=== PATIENT | female | born 1955 | race Caucasian/White ===

== ENCOUNTER 2017-11-08 10:49 | Inpatient (IN) | payer OTHER ==
[2017-11-08] VITALS (27 sets, daily range): BP systolic 93–145; BP diastolic 63–104; PULSE 94–120; TEMP 36.7–37.7; O2SAT 95–100; Ht 170.2 cm; Wt 54.4 kg
[~2017-11-08] VITALS: Ht 170.2 cm; Wt 54.4 kg
[~2017-11-08 10:49] MED LIST: AMOX500C3 PO; ASPEC325 PO; ATV5 SL; CARB200T PO; CGN1 PO; DOCU-94 PO; FERR1TAB23 PO; FRRG PO; HALO10TA17 PO; HLD5 PO; LAMO200T35 PO; PANT40TA PO; PHEN1TAB85 PO; RXC5 PO
[2017-11-08] MEDS ORDERED: SODIUM CHLORIDE 0.9% 500ML 500 ML IV STA (11:23)
[2017-11-08] MEDS ORDERED: PANTOprazole INJ 80 MG in DEXTROSE 5% 100ML IV STA (11:36)
[2017-11-08] MEDS ORDERED: HLD5 PO (11:40)
[2017-11-08] MEDS ORDERED: BENZ-89 PO (11:40)
[2017-11-08] MEDS ORDERED: LORA-741 PO (11:40)
[2017-11-08] MEDS ORDERED: ACET-1256 PO (11:44)
[2017-11-08] MEDS ORDERED: NAPR1TAB9 PO (11:44)
[2017-11-08 11:57] LABS: HEMATOCRIT 13.2 % (37-47); HEMOGLOBIN 3.9 g/dL (12.0-16.0); MEAN CELL VOLUME 85.7 fL (80-100); MEAN CORPUSCULAR HEMOGLOBIN 25.3 pg (25-34); MEAN CORPUSCULAR HGB CONC 29.5 g/dl (32-36); PLATELET COUNT 491 K/uL (130-400); WHITE BLOOD COUNT 6.31 K/uL (4.8-10.8)
[2017-11-08 12:03] LABS: ALBUMIN 3.1 gm/dl (3.4-5.0); CALCIUM 8.2 mg/dl (8.5-10.1); CREATININE 0.55 mg/dl (0.60-1.20)
[2017-11-08] MEDS ORDERED: ACETAMINOPHEN 325 MG TAB PO PRN ×2 (12:15→12:45)
[2017-11-08] MEDS ORDERED: ONDANSETRON INJ 2 MG/ML 2 ML VIAL IV PRN (12:15)
[2017-11-08 12:16] LABS: BASO % 1.3 %; BASO ABS # 0.08 K/uL (0-0.2); EOS % 0.3 %; EOS ABS # 0.02 K/uL (0-0.5); IG# 0.07 K/uL (0.00-0.02); LYMPH % 10.9 %; LYMPH ABS # 0.69 K/uL (1.2-3.4); MONO % 12.5 %; MONO ABS # 0.79 K/uL (0.11-0.59); NEUT % 73.9 %; NEUT ABS # 4.66 K/uL (1.4-6.5)
[2017-11-08] MEDS ORDERED: ASPEC325 PO (12:29)
[2017-11-08] MEDS ORDERED: MULT-506 PO (12:29)
[2017-11-08] MEDS ORDERED: LORA0.5T12 PO (12:29)
[2017-11-08] MEDS ORDERED: DENO60SO SQ (12:29)
--- NOTE | 2017-11-08 12:36 | Gastrointestinal Consultation ---
Gastrointestinal Consultation Date of Consultation: Nov 08, 2017 Attending Physician: Neda Consulting Physician: Serjio Reason for Consultation: anemia, melena History of Present Illness Patient is a 62 year old female w/ history listed below who presented to the ED for abnormal labs, HGB 4.1. Of note her baseline HGB trends 7-8. Pt was seen and evaluated, chart reviewed. She is in C2 in the ED. No family at bedside. Pt is a poor historian. It is difficult to obtain accurate history. Per admitting team who has been in contact with family, Kimberly has been taking BID aleve and daily ASA w/ daily PPI. She denies abdominal pain. I ask her if she has any pain today and she tells me her ankle is bothering her. She is unable to further articulate this pain. I asked her what color her stools are, she tells me she has black and dark brown stools daily. She is unable to tell me how many times daily. She denies BRBPR. She tells me she has not vomited, unable to recall the last time she vomited. Feels tired, weak. Denies lightheadedness, dizziness, CP, SOB. On arrival, hypotensive and tachycardic. HCT 13.2 w/ normal platelets. MCV 85. Normal BUN/MANAGER PSYCHIATRY. Fluids running and type and screen sent. Was started on IV PPI NSAIDs: ASA daily, aleve BID AC: none EGD 01/23/12: Normal esophagus.Z-line regular, 38 cm from the incisors.Normal cardia, gastric fundus and gastric body.Gastritis. This was biopsied.Non- obstructing gastric ulcer with clean base. This was biopsied. Normal duodenal bulb. Normal 2nd part of the duodenum. Biopsy was performed. Biopsies were taken with a cold forceps for evaluation of celiac disease. Past Medical/Surgical History anemia, hypotension, tachycardia, acute GIB Past Medical History: anemia, seizure disorder, bipolar, anxiety, depression, intellectual disability Past Surgical History: EGD, hip fracture, amputation, tonsillectomy Social History Smoking Status: Never Smoker Drug Use: none Marital Status: Housing Status: lives with family Occupation Status: other Allergies Coded Allergies: No Known Allergies (Verified , 11/08/17) Current Medications Home Meds and Scripts Medications Dose Route/Sig Max Daily Dose Days Date Category Dose Instructions Multivitamin (Multivitamins) Tab 1 Tab PO DAILY 4/19/18 Reported Prolia (Denosumab) Unknown Strength Izzy Unknown Dose SQ UD 11/08/17 Reported Lorazepam 0.5 Mg Tab 2 Tab PO HS 30 11/08/17 Reported Aspirin 325 Mg Ectab 325 Mg PO DAILY 11/08/17 Rx Aleve (Naproxen) 220 Mg Tab 220 Mg PO BID 11/08/17 Reported Tylenol (Acetaminophen) 500 Mg Tab 1 Tab PO BID 11/08/17 Reported Cogentin (Benztropine Mesylate) 1 Mg Tab 1 Mg PO TID 11/08/17 Reported Ativan (Lorazepam) 0.5 Mg Tab 0.5 Mg PO DAILY 11/08/17 Reported Haloperidol 5 Mg Tab 1 Tab PO BID 11/08/17 Reported Iron (Ferrous Sulfate) 325 Mg Tab 2 Tabs PO TID 10/06/14 Reported Protonix (Pantoprazole Sodium) 40 Mg Tab 40 Mg PO DAILY 10/01/14 Reported Lamictal (Lamotrigine) 200 Mg Tab 400 Mg PO HS 09/16/12 Reported Haldol (Haloperidol) 10 Mg Tab 10 Mg PO HS 09/16/12 Reported Tegretol (Carbamazepine) 200 Mg Tab 400 Mg PO TID 06/19/07 Reported Phenobarbital 30 Mg Tab 64.8 Mg PO TID 06/19/07 Reported 2 X 32.4 MG TID Review of Systems Constitutional: + weakness, + fatigue, No fever Respiratory: No cough, No shortness of breath Cardiac: No chest pain, No edema Abdomen: + GI bleeding (brown and dark black stools, denies any emesis), No pain, No nausea, No vomiting, No diarrhea, No constipation Physical Exam Date Time Temp Pulse Resp B/P (MAP) Pulse Ox O2 Delivery O2 Flow Rate FiO2 11/08/17 11:30 107 11/08/17 11:27 98 Room Air 11/08/17 10:57 37.0 80 20 79/48 95 Room Air General Appearance: no apparent distress, + pertinent finding (pt resting in bed) Eyes: PERRL ENT: hearing grossly normal Neck: supple, trachea midline Respiratory/Chest: lungs clear, normal breath sounds, no respiratory distress, no accessory muscle use Abdomen: normal bowel sounds, non tender, soft, no organomegaly, + pertinent finding (pt would not consent to a rectal examination as this was just done) Neurologic/Psych: alert, normal mood/affect, oriented x 3 Skin: + pallor Laboratory Results Last 24 Hours Test 11/08/17 11:10 11/08/17 12:12 White Blood Count 6.31 K/uL Red Blood Count 1.54 M/uL Hemoglobin 3.9 g/dL Hematocrit 13.2 % Mean Corpuscular Volume 85.7 fL Mean Corpuscular Hemoglobin 25.3 pg Mean Corpuscular Hemoglobin Concent 29.5 g/dl Platelet Count 491 K/uL Neutrophils (%) (Auto) 73.9 % Lymphocytes (%) (Auto) 10.9 % Monocytes (%) (Auto) 12.5 % Eosinophils (%) (Auto) 0.3 % Basophils (%) (Auto) 1.3 % Neutrophils # (Auto) 4.66 K/uL Lymphocytes # (Auto) 0.69 K/uL Monocytes # (Auto) 0.79 K/uL Eosinophils # (Auto) 0.02 K/uL Basophils # (Auto) 0.08 K/uL Immature Granulocyte % (Auto) 1.1 % Immature Granulocyte # (Auto) 0.07 K/uL Hypochromasia PRESENT Anisocytosis PRESENT Stomatocytes 1+ Sodium Level 135 mmol/L Potassium Level 4.0 mmol/L Chloride Level 102 mmol/L Carbon Dioxide Level 24 mmol/L Anion Gap 9.0 mmol/L Blood Urea Nitrogen 12 mg/dl Creatinine 0.55 mg/dl Est Creatinine Clear Calc Drug Dose 97.0 ml/min Estimated GFR () 118.2 Estimated GFR (Non- 101.9 BUN/Creatinine Ratio 21.8 Random Glucose 106 mg/dl Calcium Level 8.2 mg/dl Total Bilirubin 0.2 mg/dl Aspartate Amino Transf (AST/SGOT) 13 U/L Alanine Aminotransferase (ALT/SGPT) 22 U/L Alkaline Phosphatase 45 U/L Total Protein 6.0 gm/dl Albumin 3.1 gm/dl Globulin 2.9 gm/dl Albumin/Globulin Ratio 1.1 Thyroid Stimulating Hormone (TSH) 1.370 uIu/ml Impression Patient is a 62 year old female w/ intellectual disability who presented to [facility] ED for abnormal OP labs w/ marked anemia. She has history of anemia, HGB baseline 7-8. On arrival she is hypotensive, tachycardic w/ HCT 13. Normal platelets, BUN/MANAGER PSYCHIATRY. She is on full dose ASA and aleve BID. UGI bleed likely secondary to NSAIDs use. GI would recommend transfusion w/ plan for EGD once adequately transfused. Plan NPO (ok for sip w/ meds) IV PPI bolus and drip Trend H&H Transfuse PRN HGB < 8 Monitor all output No NSAIDs Plan for inpatient EGD tomorrow unless urgently indicated today. Please call with any acute changes, questions or concerns ATTESTATION I have performed a history and physical examination of this patient and reviewed the electronic record. Specifically, on physical examination patient is comfortable without abdominal tenderness. I have discussed the case with Jennie SNYDER. The above note reflects my findings, conclusions, and recommendations. Henry Bassett MD
[2017-11-08] MEDS ORDERED: ICU PROTOCOL FOR HYPERGLYCEMIA PRN (12:45)
--- NOTE | 2017-11-08 13:03 | EMERGENCY ROOM VISIT NOTE ---
History First contact with patient: 11:13 Chief Complaint: ABNORMAL LABS Stated Complaint: LOW BLOOD COUNT History of Present Illness The patient is a 62 year old female who presents to the Emergency Room with complaints of abnormal lab results. Patient has a history of moderate MR. The history is limited. She was reportedly seen in the primary care office today. She was told that she had a very low hemoglobin and that she needed to come to the emergency department. The patient currently denies any pain. She does admit to feeling lightheaded upon standing. She has also had black stools. She denies any vomiting. No fever or chills. She does not know of any history of GI bleeding. Her hemoglobin was reportedly 4.1 in the office. Review of Systems 10 system review performed and negative unless noted in HPI or below. This was done to the best of my ability Past Medical/Surgical History Medical Problems: (1) Chronic anemia (2) Depression with anxiety (3) Hip fracture, right (4) Hx of right BKA (5) Moderate mental retardation (6) Seizure disorder Surgical Problems: (1) H/O tubal ligation (2) Hx of tonsillectomy Moderate MR Seizures Social History Smoking Status: Never Smoker Drug Use: none Marital Status: Housing Status: lives with family Occupation Status: other Current/Historical Medications Scheduled Acetaminophen (Tylenol), 1 TAB PO BID Aspirin (Aspirin), 325 MG PO DAILY Benztropine Mesylate (Cogentin), 1 MG PO TID Carbamazepine (Tegretol), 400 MG PO TID Denosumab (Prolia), Unknown Dose SQ UD Ferrous Sulfate (Iron), 2 TABS PO TID Haloperidol (Haldol), 10 MG PO HS Haloperidol (Haloperidol), 1 TAB PO BID Lamotrigine (Lamictal), 400 MG PO HS Lorazepam (Ativan), 0.5 MG PO DAILY Lorazepam (Lorazepam), 2 TAB PO HS Multivitamin (Multivitamin), 1 TAB PO DAILY Naproxen (Aleve), 220 MG PO BID Pantoprazole (Protonix), 40 MG PO DAILY Phenobarbital (Phenobarbital), 64.8 MG PO TID Physical Exam Vital Signs Date Time Temp Pulse Resp B/P (MAP) Pulse Ox O2 Delivery O2 Flow Rate FiO2 11/08/17 11:49 110 16 100 11/08/17 11:30 107 11/08/17 11:27 98 Room Air 11/08/17 11:15 102/61 11/08/17 10:57 37.0 80 20 79/48 95 Room Air Physical Exam GENERAL: 62-year-old female, pale in appearance, in no acute distress, nondiaphoretic, well-developed well-nourished. SKIN: The skin was pale HEAD: Normocephalic atraumatic. MOUTH: Mucous membranes dry NECK: Supple without nuchal rigidity. No lymphadenopathy. Cervical spine is nontender. No JVD. HEART: Tachycardic, regular rhythm without murmurs gallops or rubs. LUNGS: Clear to auscultation bilaterally without wheezes, rales or rhonchi. No accessory muscle use. ABDOMEN: Positive bowel sounds x 4.Soft, nontender, without organomegaly. No guarding or rebound tenderness. RECTAL: No external hemorrhoids noted. Digital exam reveals good sphincter tone. No masses or fissures. Black stool noted in the rectum. Guaiac positive. MUSCULOSKELETAL: Right BKA noted strength 5/5 throughout. NEURO: Patient was alert and oriented to person and place. She is answering most questions appropriately. Medical Decision & Procedures Laboratory Results 11/08/17 11:10 Red Blood Count 1.54, Mean Corpuscular Volume 85.7, Mean Corpuscular Hemoglobin 25.3, Mean Corpuscular Hemoglobin Concent 29.5, Neutrophils (%) (Auto) 73.9, Lymphocytes (%) (Auto) 10.9, Monocytes (%) (Auto) 12.5, Eosinophils (%) (Auto) 0.3, Basophils (%) (Auto) 1.3, Neutrophils # (Auto) 4.66, Lymphocytes # (Auto) 0.69, Monocytes # (Auto) 0.79, Eosinophils # (Auto) 0.02, Basophils # (Auto) 0.08 11/08/17 11:10 Test 11/08/17 11:10 White Blood Count 6.31 K/uL (4.8-10.8) Red Blood Count 1.54 M/uL (4.2-5.4) Hemoglobin 3.9 g/dL (12.0-16.0) Hematocrit 13.2 % (37-47) Mean Corpuscular Volume 85.7 fL (80-100) Mean Corpuscular Hemoglobin 25.3 pg (25-34) Mean Corpuscular Hemoglobin Concent 29.5 g/dl (32-36) Platelet Count 491 K/uL (130-400) Neutrophils (%) (Auto) 73.9 % Lymphocytes (%) (Auto) 10.9 % Monocytes (%) (Auto) 12.5 % Eosinophils (%) (Auto) 0.3 % Basophils (%) (Auto) 1.3 % Neutrophils # (Auto) 4.66 K/uL (1.4-6.5) Lymphocytes # (Auto) 0.69 K/uL (1.2-3.4) Monocytes # (Auto) 0.79 K/uL (0.11-0.59) Eosinophils # (Auto) 0.02 K/uL (0-0.5) Basophils # (Auto) 0.08 K/uL (0-0.2) Immature Granulocyte % (Auto) 1.1 % Immature Granulocyte # (Auto) 0.07 K/uL (0.00-0.02) Hypochromasia PRESENT Anisocytosis PRESENT Stomatocytes 1+ Prothrombin Time 11.5 SECONDS (9.0-12.0) Prothromb Time International Ratio 1.1 (0.9-1.1) Activated Partial Thromboplast Time 21.9 SECONDS (21.0-31.0) Partial Thromboplastin Ratio 0.8 Anion Gap 9.0 mmol/L (3-11) Est Creatinine Clear Calc Drug Dose 97.0 ml/min Estimated GFR () 118.2 Estimated GFR (Non- 101.9 BUN/Creatinine Ratio 21.8 (10-20) Calcium Level 8.2 mg/dl (8.5-10.1) Total Bilirubin 0.2 mg/dl (0.2-1) Aspartate Amino Transf (AST/SGOT) 13 U/L (15-37) Alanine Aminotransferase (ALT/SGPT) 22 U/L (12-78) Alkaline Phosphatase 45 U/L (45-117) Total Protein 6.0 gm/dl (6.4-8.2) Albumin 3.1 gm/dl (3.4-5.0) Globulin 2.9 gm/dl (2.5-4.0) Albumin/Globulin Ratio 1.1 (0.9-2) Thyroid Stimulating Hormone (TSH) 1.370 uIu/ml (0.300-4.500) Hepatitis C Antibody Screen NEG (NEG) Medications Administered Medications (Trade) Dose Ordered Sig/Christopher Route Start Time Stop Time Status Last Admin Dose Admin Sodium Chloride 500 ml @ 999 mls/hr Q31M STAT IV 11/08/17 11:23 11/08/17 11:53 DC 11/08/17 12:05 999 MLS/HR Pantoprazole Sodium 80 mg/ Dextrose 120 ml @ 480 mls/hr NOW STAT IV 11/08/17 11:36 11/08/17 11:50 DC 11/08/17 12:05 480 MLS/HR Pantoprazole Sodium 40 mg/ Dextrose 100 ml @ 20 mls/hr Q5H IV 11/08/17 11:50 12/08/17 11:49 11/08/17 16:47 20 MLS/HR ED Course Patient was seen and examined Vital signs including blood pressure were reviewed medications list was verified with patient Labs were obtained, and a saline lock was established 2 18-gauge saline locks were established. She was hydrated with 500 cc normal saline. She was ordered pantoprazole IV push and drip Upon reassessment, the patient was resting comfortably. Her vital signs of blood pressure recheck. She was slightly tachycardic. She was ordered another 500 cc normal saline bolus Blood products were ordered The [facility] It was subsequently discussed with GI. The patient was again rechecked and denied any pain or dizziness. The [facility] service will kindly admit the patient to the hospital for further workup and treatment Medical Decision Differential diagnosis: Acute on chronic anemia, upper GI bleed, gastritis, duodenal ulcer, renal failure, coagulopathy, bowel perforation This patient is a 62-year-old female presents to the emergency department from her primary care physician's office for profound anemia. On exam, the patient was significantly pale. She was initially hypotensive. She became more tachycardic. The patient was guaiac positive with black stools. She denies any abdominal pain. Her abdomen was benign on exam. I did not suspect perforation. The patient was hydrated and ordered blood products. She was started on pantoprazole. The admitting service was consulted. She will be admitted for further workup and treatment. This chart was completed in part utilizing Dragon Speech Voice Recognition software. Attempts were made to minimize the grammatical errors, random word insertions, pronoun errors and incomplete sentences. Any formal questions or concerns about the content, text or information contained within the body of this dictation should be directly addressed to the provider for clarification. Medication Reconcilliation Current Medication List: was personally reviewed by me Blood Pressure Screening Patient's blood pressure: Low blood pressure Consults Consulting Physician: Meredith marshall Impression Primary Impression: Severe anemia Additional Impression: GI bleed Critical Care I have personally spent greater than 30 minutes of critical care time in the direct management of this patient. This includes bedside care, interpretation of diagnostic studies, and testing, discussion with consultants, patient, and family members, and other required patient management activities. This 30 minutes is in excess of all separately billable procedures. Departure Information Prescriptions Aspirin (Aspirin) 325 Mg Ectab 325 MG PO DAILY, #60 Prov: Margret Red .LILLIAN 11/08/17 Referrals Anibal Roche M.D. (PCP) Patient Instructions My [facility] Problem Qualifiers
[2017-11-08 13:23] LABS: INR 1.1 (0.9-1.1); PTT PATIENT 21.9 SECONDS (21.0-31.0)
--- NOTE | 2017-11-08 13:45 | History and Physical ---
History & Physical Date & Time of Service: Nov 08, 2017 ~ 1145 Chief Complaint: Referred by PCP for anemia Primary Care Physician: Anibal Roche M.D. History of Present Illness 62-year-old female who presents the ED by referral of her PCP for evaluation of anemia. She has chronic anemia with baseline hemoglobins around 7-8. History is limited from the patient due to her underlying mental status. When asked questions, she mostly repeats them back. She presented to her PCPs office today with complaints of increasing fatigue and weakness. I spoke to her son on the phone who provides the history for me. He reports that she has chronic fatigue and weakness however has been worse over the past couple weeks. Patient is on iron supplement and stools are chronically dark. No changes in stools or bright red bleeding per rectum. No reports of chest pain or shortness of breath. No lightheadedness, dizziness, or syncopal events. No other recent illnesses, fever, or chills. Son reports she has been having some urinary incontinence. Patient went to her PCPs office today she was found to have a hemoglobin of 4.1. She was referred to the ER for further evaluation. In the ED patient's hemoglobin is 3.9. Systolic blood pressures have been running in the 90s to low 100s. Heart rates have been in the 110's. In the ED , patient was given IVF and started on Protonix drip. She was also typed and crossed for blood. 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 Status: Chronic (5) Moderate mental retardation Status: Chronic (6) Seizure disorder Status: Chronic Surgical Problems: (1) H/O tubal ligation Status: Chronic (2) Hx of tonsillectomy Status: Chronic Family History FH: colon cancer MOTHER FH: prostate cancer FATHER Social History Smoking Status: Never Smoker Alcohol Use: none Marital Status: Housing status: lives with family Occupational Status: other Immunizations History of Influenza Vaccine: Yes Influenza Vaccine Date: May 18, 2017 History of Tetanus Vaccine?: Yes Tetanus Immunization Date: May 18, 2017 Allergies Coded Allergies: No Known Allergies (Verified , 11/08/17) Home Medications Scheduled Acetaminophen (Tylenol), 1 TAB PO BID Aspirin (Aspirin), 325 MG PO DAILY Benztropine Mesylate (Cogentin), 1 MG PO TID Carbamazepine (Tegretol), 400 MG PO TID Denosumab (Prolia), Unknown Dose SQ UD Ferrous Sulfate (Iron), 2 TABS PO TID Haloperidol (Haldol), 10 MG PO HS Haloperidol (Haloperidol), 1 TAB PO BID Lamotrigine (Lamictal), 400 MG PO HS Lorazepam (Ativan), 0.5 MG PO DAILY Lorazepam (Lorazepam), 2 TAB PO HS Multivitamin (Multivitamin), 1 TAB PO DAILY Naproxen (Aleve), 220 MG PO BID Pantoprazole (Protonix), 40 MG PO DAILY Phenobarbital (Phenobarbital), 64.8 MG PO TID Review of Systems ROS limited due to patient's mental status. Pertinent positives and negatives as noted in HPI. Physical Exam Vital Signs Date Time Temp Pulse Resp B/P (MAP) Pulse Ox O2 Delivery O2 Flow Rate FiO2 11/08/17 12:42 111/58 11/08/17 12:30 96/55 11/08/17 12:19 109 18 99 11/08/17 11:49 110 16 100 11/08/17 11:30 107 11/08/17 11:27 98 Room Air 11/08/17 11:15 102/61 11/08/17 10:57 37.0 80 20 79/48 95 Room Air General Appearance: WD/WN, no apparent distress Head: normocephalic, atraumatic Eyes: normal inspection, EOMI, sclerae normal ENT: hearing grossly normal, + pertinent finding (Mucous membranes moist) Neck: supple, no JVD, trachea midline Respiratory/Chest: lungs clear, normal breath sounds, no respiratory distress Cardiovascular: no edema, normal peripheral pulses, + tachycardia (Regular rhythm) Abdomen/GI: normal bowel sounds, non tender, soft, no organomegaly Extremities/Musculoskelatal: + pertinent finding (S/P right BKA) Neurologic/Psych: no motor/sensory deficits, alert, + pertinent finding ( History of moderate mental retardation, poor insight, frequently repeats questions back) Skin: warm/dry, + pallor Diagnostics Laboratory Results Results Past 24 Hours Test 11/08/17 11:10 11/08/17 12:12 11/08/17 12:49 Range/Units White Blood Count 6.31 4.8-10.8 K/uL Red Blood Count 1.54 4.2-5.4 M/uL Hemoglobin 3.9 12.0-16.0 g/dL Hematocrit 13.2 37-47 % Mean Corpuscular Volume 85.7 80-100 fL Mean Corpuscular Hemoglobin 25.3 25-34 pg Mean Corpuscular Hemoglobin Concent 29.5 32-36 g/dl Platelet Count 491 130-400 K/uL Neutrophils (%) (Auto) 73.9 % Lymphocytes (%) (Auto) 10.9 % Monocytes (%) (Auto) 12.5 % Eosinophils (%) (Auto) 0.3 % Basophils (%) (Auto) 1.3 % Neutrophils # (Auto) 4.66 1.4-6.5 K/uL Lymphocytes # (Auto) 0.69 1.2-3.4 K/uL Monocytes # (Auto) 0.79 0.11-0.59 K/uL Eosinophils # (Auto) 0.02 0-0.5 K/uL Basophils # (Auto) 0.08 0-0.2 K/uL Immature Granulocyte % (Auto) 1.1 % Immature Granulocyte # (Auto) 0.07 0.00-0.02 K/uL Hypochromasia PRESENT Anisocytosis PRESENT Stomatocytes 1+ Sodium Level 135 136-145 mmol/L Potassium Level 4.0 3.5-5.1 mmol/L Chloride Level 102 98-107 mmol/L Carbon Dioxide Level 24 21-32 mmol/L Anion Gap 9.0 3-11 mmol/L Blood Urea Nitrogen 12 7-18 mg/dl Creatinine 0.55 0.60-1.20 mg/dl Est Creatinine Clear Calc Drug Dose 97.0 ml/min Estimated GFR () 118.2 Estimated GFR (Non- 101.9 BUN/Creatinine Ratio 21.8 10-20 Random Glucose 106 70-99 mg/dl Calcium Level 8.2 8.5-10.1 mg/dl Total Bilirubin 0.2 0.2-1 mg/dl Aspartate Amino Transf (AST/SGOT) 13 15-37 U/L Alanine Aminotransferase (ALT/SGPT) 22 12-78 U/L Alkaline Phosphatase 45 45-117 U/L Total Protein 6.0 6.4-8.2 gm/dl Albumin 3.1 3.4-5.0 gm/dl Globulin 2.9 2.5-4.0 gm/dl Albumin/Globulin Ratio 1.1 0.9-2 Thyroid Stimulating Hormone (TSH) 1.370 0.300-4.500 uIu/ml Impression Assessment and Plan PROFOUND ANEMIA LIKELY UPPER GI BLEEDING -admit to ICU -Patient referred to ED by PCP where she was evaluated for weakness and fatigue and found to have a hemoglobin of 4.1; in the ED, hemoglobin found to be 3.9, systolic blood pressures running in the 90s to low 100s and heart rates in the 110's -Patient had EGD in 2011 that showed gastritis, nonobstructing ulcer with clean base-findings were felt to be due to chronic NSAID use and patient was advised for an 8 week follow-up endoscopy however did not have a completed -Noted that patient takes a full dose aspirin daily and Aleve twice a day -Likely NSAID induced gastritis -History of chronic anemia, baseline hemoglobin runs between 7-8 -Stool is heme positive in ED -Started on Protonix drip in the ED, will continue -IV fluids -N.p.o. except medications -Case discussed with Jennie SNYDER SEIZURE DISORDER, HISTORY OF PSYCHOSIS AND HALLUCINATIONS -Continue benztropine, carbamazepine, haloperidol, lamotrigine, Lorazepam, and phenobarbital DVT PROPHYLAXIS -SCDs due to profound anemia and GI bleeding DISPO -In my clinical judgment this beneficiary meets acute admission criteria, established by [facility], that includes being hospitalized through two midnights. ADDENDUM: I have seen and examined the patient and agree with the assessment and plan above. She has only been given 1L IVF in the ER, but remains hypotensive and will be monitored in the ICU for initial resuscitation. She has taken long-term NSAIDs both ASA 325mg for uncertain reason and Naproxen at least twice daily terminal make up operator for chronic pain in her legs. She is s/p R BKA for chronic osteomyelitis. GI plans for EGD once adequately resuscitated with blood products. Appreciate the ICU team's management of this patient. Josesito, DO Resuscitation Status VTE Prophylaxis Will order VTE Prophylaxis: Yes
[2017-11-08] MEDS: SODIUM CHLORIDE 0.9% 1000ML 1,000 ML IV SCH ×2 (13:51→22:15)
[2017-11-08] MEDS: PANTOprazole INJ 40 MG in DEXTROSE 5% 100ML IV SCH ×3 (13:53→22:32)
[2017-11-08] MEDS: BENZTROPINE MESYLATE 1 MG TAB PO SCH ×2 (13:58→21:18)
[2017-11-08] MEDS: HALOPERIDOL 5 MG TAB PO SCH ×2 (13:59→21:18)
[2017-11-08] MEDS: CARBAMAZEPINE 200 MG TAB PO SCH ×2 (13:59→21:17)
[2017-11-08] MEDS ORDERED: PHENOBARBITAL 32.4 MG TAB PO SCH (14:00)
--- NOTE | 2017-11-08 20:05 | Critical Care Consultation ---
Critical Care Consultation Date of Consultation: Nov 08, 2017. Attending Physician: Jerrod Martin M.D. Reason for Consultation: GI bleeding. History of Present Illness Dear Dr. Martin: Thank you for the kind referral of Mrs. Rutledge to critical care service. 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 The patient presented to her primary care physician due to resistant fatigue and weakness. The patient was found to have significant anemia. However the patient was referred to the ED due to persistent fatigue today and found to have hematocrit in the range of 13. The patient denies hematemesis or coffee-ground, vomiting. She noted that her stool has been dark and melanotic. She denies any abdominal pain. The patient is very poor historian and however she denies shortness of breath, no chest pain , no near syncopal episode and no palpitation. She did not have any history of GI bleed in the past, she does not drink alcohol on a daily basis, she is not known to have history of GI bleed as mentioned above. No family history also of blood dyscrasia and she denies any weight loss. Past Medical/Surgical History As mentioned above in the first section. Family History FH: colon cancer MOTHER FH: prostate cancer FATHER Social History Smoking Status: Never Smoker Alcohol Use: none Marital Status: Housing Status: lives with family Occupation Status: other Allergies Coded Allergies: No Known Allergies (Verified , 11/08/17) Home Medications Scheduled Acetaminophen (Tylenol), 1 TAB PO BID Aspirin (Aspirin), 325 MG PO DAILY Benztropine Mesylate (Cogentin), 1 MG PO TID Carbamazepine (Tegretol), 400 MG PO TID Denosumab (Prolia), Unknown Dose SQ UD Ferrous Sulfate (Iron), 2 TABS PO TID Haloperidol (Haldol), 10 MG PO HS Haloperidol (Haloperidol), 1 TAB PO BID Lamotrigine (Lamictal), 400 MG PO HS Lorazepam (Ativan), 0.5 MG PO DAILY Lorazepam (Lorazepam), 2 TAB PO HS Multivitamin (Multivitamin), 1 TAB PO DAILY Naproxen (Aleve), 220 MG PO BID Pantoprazole (Protonix), 40 MG PO DAILY Phenobarbital (Phenobarbital), 64.8 MG PO TID Current Inpatient Medications Current Inpatient Medications Medications (Trade) Dose Ordered Sig/Christopher Route Start Time Stop Time Status Last Admin Dose Admin Pantoprazole Sodium 40 mg/ Dextrose 100 ml @ 20 mls/hr Q5H IV 11/08/17 11:50 12/08/17 11:49 11/08/17 16:47 20 MLS/HR Sodium Chloride 1,000 ml @ 100 mls/hr Q10H IV 11/08/17 12:15 12/08/17 12:14 11/08/17 13:51 100 MLS/HR Acetaminophen (Tylenol Tab) 650 mg Q4H PRN PO 11/08/17 12:45 12/08/17 12:44 Miscellaneous Information (Icu Protocol For Hyperglycemia) 1 ea PRN PRN N/A 11/08/17 12:45 11/10/17 12:44 Benztropine Mesylate (Cogentin Tab) 1 mg TID PO 11/08/17 14:00 12/08/17 13:59 11/08/17 13:58 1 MG Carbamazepine (Tegretol Tab) 400 mg TID PO 11/08/17 14:00 12/08/17 13:59 11/08/17 13:59 400 MG Haloperidol (Haldol Tab) 5 mg BID@0900,1400 PO 11/08/17 14:00 12/08/17 13:59 11/08/17 13:59 5 MG Miscellaneous Information (Order Awaiting Action) 1 ea QS N/A 11/08/17 16:00 12/08/17 15:59 Lorazepam (Ativan Tab) 1 mg HS PO 11/08/17 21:00 12/08/17 20:59 Lorazepam (Ativan Tab) 0.5 mg DAILY PO 11/09/17 09:00 12/09/17 08:59 Haloperidol (Haldol Tab) 10 mg HS PO 11/08/17 21:00 12/08/17 20:59 Phenobarbital Sodium 50 mg/ Syringe 0.7692 ml @ 0.769 mls/min TID IV 11/08/17 21:00 12/08/17 20:59 Review of Systems Constitutional: No fever, No chills, No sweats, No weight loss, No weakness, No fatigue, No problem reported Eyes: No worsening of vision, No eye pain, No redness, No discharge, No diplopia, No problem reported ENT: No hearing loss, No unusual epistaxis, No nasal symptoms, No sore throat, No tinnitus, No dental problems, No trouble swallowing, No problem reported Respiratory: No cough, No sputum, No wheezing, No shortness of breath, No dyspnea on exertion, No dyspnea at rest, No hemoptysis, No problem reported Cardiovascular: No chest pain, No orthopnea, No PND, No edema, No claudication , No palpitations, No problem reported Abdomen: + problem reported (Melena), No pain, No nausea, No vomiting, No diarrhea, No constipation, No GI bleeding Musculoskeletal: + problem reported (Generalized weakness) Genitourinary - Female: No dysuria, No urinary frequency, No urinary urgency, No urinary incontinence, No urinary retention, No hematuria, No dysmenorrhea, No menorrhagia, No metrorrhagia, No rash, No vaginal bleeding, No vaginal discharge, No vaginal itching, No vulvodynia, No , No problem reported Neurologic: + weakness Psychiatric: + problem reported (Bipolar disorder), No depression symptoms, No anhedonism, No anxiety, No insomnia, No substance abuse Hematologic / Lymphatic: No abnormal bleeding/bruising, No clotting problems, No swollen lymph nodes, No night sweats, No problem reported Allergic / Immunologic: No environmental allergies, No seasonal allergies, No pet sensitivities, No food allergies, No hives, No frequent infections, No poor healing, No prolonged convalescence, No problem reported Physical Exam Date Time Temp Pulse Resp B/P (MAP) Pulse Ox O2 Delivery O2 Flow Rate FiO2 11/08/17 18:50 37.7 106 18 143/87 97 11/08/17 18:20 37.7 102 18 116/91 97 11/08/17 18:05 37.3 101 20 134/87 98 11/08/17 18:00 37.3 97 22 141/88 99 11/08/17 17:00 37.4 107 24 135/75 97 11/08/17 16:35 37.1 109 20 135/104 97 11/08/17 16:20 37.3 110 16 136/89 99 11/08/17 16:00 37.3 111 16 145/77 (99) 99 Room Air 11/08/17 16:00 37.2 114 20 145/77 99 11/08/17 16:00 99 Room Air 11/08/17 15:05 37.2 120 19 117/68 98 11/08/17 14:35 37.1 120 21 128/78 99 11/08/17 14:21 36.7 120 16 134/73 100 11/08/17 14:00 37.0 116 17 117/64 (81) 98 Room Air 11/08/17 13:30 37.0 117 21 135/70 99 Room Air 11/08/17 12:42 111/58 11/08/17 12:30 96/55 11/08/17 12:19 109 18 99 11/08/17 11:49 110 16 100 11/08/17 11:30 107 11/08/17 11:27 98 Room Air 11/08/17 11:15 102/61 11/08/17 10:57 37.0 80 20 79/48 95 Room Air General Appearance: uncomfortable Eyes: EOMI, other (Pale) ENT: normal throat exam Neck: trachea midline Respiratory: breath sounds normal Cardiovasular: normal S1S2, no M/G/R, no murmur Abdomen: non tender, no rebound, no masses Back: normal inspection Upper Extremities: no edema Lower Extremities: no edema, other (BK) Neuro: alert, normal motor exam Psychiatric: normal affect Laboratory Results Last 24 Hours Test 11/08/17 11:10 11/08/17 14:11 11/08/17 17:07 White Blood Count 6.31 K/uL Red Blood Count 1.54 M/uL Hemoglobin 3.9 g/dL Hematocrit 13.2 % Mean Corpuscular Volume 85.7 fL Mean Corpuscular Hemoglobin 25.3 pg Mean Corpuscular Hemoglobin Concent 29.5 g/dl Platelet Count 491 K/uL Neutrophils (%) (Auto) 73.9 % Lymphocytes (%) (Auto) 10.9 % Monocytes (%) (Auto) 12.5 % Eosinophils (%) (Auto) 0.3 % Basophils (%) (Auto) 1.3 % Neutrophils # (Auto) 4.66 K/uL Lymphocytes # (Auto) 0.69 K/uL Monocytes # (Auto) 0.79 K/uL Eosinophils # (Auto) 0.02 K/uL Basophils # (Auto) 0.08 K/uL Immature Granulocyte % (Auto) 1.1 % Immature Granulocyte # (Auto) 0.07 K/uL Hypochromasia PRESENT Anisocytosis PRESENT Stomatocytes 1+ Prothrombin Time 11.5 SECONDS Prothromb Time International Ratio 1.1 Activated Partial Thromboplast Time 21.9 SECONDS Partial Thromboplastin Ratio 0.8 Sodium Level 135 mmol/L Potassium Level 4.0 mmol/L Chloride Level 102 mmol/L Carbon Dioxide Level 24 mmol/L Anion Gap 9.0 mmol/L Blood Urea Nitrogen 12 mg/dl Creatinine 0.55 mg/dl Est Creatinine Clear Calc Drug Dose 97.0 ml/min Estimated GFR () 118.2 Estimated GFR (Non- 101.9 BUN/Creatinine Ratio 21.8 Random Glucose 106 mg/dl Calcium Level 8.2 mg/dl Total Bilirubin 0.2 mg/dl Aspartate Amino Transf (AST/SGOT) 13 U/L Alanine Aminotransferase (ALT/SGPT) 22 U/L Alkaline Phosphatase 45 U/L Total Protein 6.0 gm/dl Albumin 3.1 gm/dl Globulin 2.9 gm/dl Albumin/Globulin Ratio 1.1 Thyroid Stimulating Hormone (TSH) 1.370 uIu/ml Hepatitis C Antibody Screen NEG Urine Color YELLOW Urine Appearance CLEAR Urine pH 5.5 Urine Specific [place] 1.011 Urine Protein NEG Urine Glucose (UA) NEG Urine Ketones NEG Urine Occult Blood NEG Urine Nitrite POS Urine Bilirubin NEG Urine Urobilinogen NEG Urine Leukocyte Esterase NEG Urine WBC (Auto) 1-5 /hpf Urine RBC (Auto) 0-4 /hpf Urine Hyaline Casts (Auto) 1-5 /lpf Urine Epithelial Cells (Auto) 20-30 /lpf Urine Bacteria (Auto) 2+ Bedside Glucose 128 mg/dl Diagnostic Results Hematocrit of 13, no imaging studies, the rest of her labs are consistent with possible upper GI bleed. Assessment & Plan 1. GI bleeding, likely upper. 2. Possibly NSAID induced gastritis versus peptic ulcer disease. 3. History of bipolar, chronic altered mental status, 4. History of rheumatoid arthritis treated with NSAIDs for joint pain. 5. History of osteomyelitis status post BKA. 6. History of seizure disorder. Plan: 1. Continue with Protonix drip. 2. Serial hematocrit check every 8 hours. 3. Transfuse total of 3 units of blood. 4. Keep hematocrit above then 21. 5. Appreciate GI consult. 6. Keep the patient n.p.o. after midnight for tentative endoscopy in the morning. 7. Change phenobarbital to IV as it will not be observed effectively for GI bleeding. 8. Continue the rest of her medications. 9. Discussed with the staff on rounds and details. Critical care time spent with the patient was 45 minutes.
[2017-11-08] MEDS: PHENOBARBITAL SOD IV SCH (21:16)
[2017-11-08] MEDS: LORAZEPAM 0.5 MG TAB PO SCH (21:20)
[2017-11-08 22:03] LABS: HEMATOCRIT 20.3 % (37-47); HEMOGLOBIN 6.8 g/dL (12.0-16.0)
[2017-11-09] VITALS (32 sets, daily range): BP systolic 119–158; BP diastolic 69–101; PULSE 76–104; TEMP 36.2–37.4; O2SAT 93–98
[2017-11-09] MEDS: PANTOprazole INJ 40 MG in DEXTROSE 5% 100ML IV SCH ×2 (04:38→07:52)
[2017-11-09 05:31] LABS: HEMATOCRIT 27.8 % (37-47); HEMOGLOBIN 9.4 g/dL (12.0-16.0); MEAN CORPUSCULAR HEMOGLOBIN 28.7 pg (25-34); MEAN CORPUSCULAR HGB CONC 33.8 g/dl (32-36); MEAN PLATELET VOLUME 8.5 fL (7.4-10.4); NUCLEATED RED BLOOD CELL ABS 0.02 K/uL (0-0); PLATELET COUNT 340 K/uL (130-400); RED CELL DISTRIBUTION WIDTH CV 14.7 % (11.5-14.5); RED CELL DISTRIBUTION WIDTH SD 45.6 fL (36.4-46.3); WHITE BLOOD COUNT 7.41 K/uL (4.8-10.8)
[2017-11-09 06:04] LABS: CALCIUM 7.5 mg/dl (8.5-10.1); CREATININE 0.4 mg/dl (0.60-1.20); POTASSIUM 3.5 mmol/L (3.5-5.1)
[2017-11-09] MEDS: CARBAMAZEPINE 200 MG TAB PO SCH ×3 (07:50→20:39)
[2017-11-09] MEDS: BENZTROPINE MESYLATE 1 MG TAB PO SCH ×3 (07:50→20:35)
[2017-11-09] MEDS: HALOPERIDOL 5 MG TAB PO SCH ×3 (07:50→20:35)
[2017-11-09] MEDS: PHENOBARBITAL SOD IV SCH ×3 (07:52→20:40)
[2017-11-09] MEDS: SODIUM CHLORIDE 0.9% 1000ML 1,000 ML IV SCH ×2 (08:15→11:57)
[2017-11-09] MEDS: LORAZEPAM 0.5 MG TAB PO SCH ×2 (08:23→20:36)
--- NOTE | 2017-11-09 09:48 | Gastroenterology Progress Note ---
Progress Note Date of Service: Nov 09, 2017 Subjective Pt evaluation today including: conversation w/ patient, physical exam, chart review, lab review Pt was seen and evaluated, chart reviewed. No acute events. Presented with ? dark stool on iron, weakness form PCP office. HGB 4. Was transfused, started on PPI drip. no coffee ground emesis, hematemesis, melena BRBPR since admission. Notes she feels okay. No lightheadedness, dizziness, CP, SOB. She is normotensive w/ HCT 27.8 NSAIDs: ASA daily, aleve BID AC: none EGD 01/23/12: Normal esophagus.Z-line regular, 38 cm from the incisors.Normal cardia, gastric fundus and gastric body.Gastritis. This was biopsied.Non- obstructing gastric ulcer with clean base. This was biopsied. Normal duodenal bulb. Normal 2nd part of the duodenum. Biopsy was performed. Biopsies were taken with a cold forceps for evaluation of celiac disease. Review of Systems Constitutional: No fever, No chills, No weakness, No fatigue Respiratory: No cough, No shortness of breath Cardiac: No chest pain, No edema Abdomen: No pain, No nausea, No vomiting, No diarrhea, No constipation, No GI bleeding, No dysphagia, No odynophagia Medications Current Inpatient Medications Medications (Trade) Dose Ordered Sig/Christopher Route Start Time Stop Time Status Last Admin Dose Admin Pantoprazole Sodium 40 mg/ Dextrose 100 ml @ 20 mls/hr Q5H IV 11/08/17 11:50 12/08/17 11:49 11/09/17 07:52 20 MLS/HR Sodium Chloride 1,000 ml @ 100 mls/hr Q10H IV 11/08/17 12:15 12/08/17 12:14 11/08/17 13:51 100 MLS/HR Acetaminophen (Tylenol Tab) 650 mg Q4H PRN PO 11/08/17 12:45 12/08/17 12:44 Miscellaneous Information (Icu Protocol For Hyperglycemia) 1 ea PRN PRN N/A 11/08/17 12:45 11/10/17 12:44 Benztropine Mesylate (Cogentin Tab) 1 mg TID PO 11/08/17 14:00 12/08/17 13:59 11/09/17 07:50 1 MG Carbamazepine (Tegretol Tab) 400 mg TID PO 11/08/17 14:00 12/08/17 13:59 11/09/17 07:50 400 MG Haloperidol (Haldol Tab) 5 mg BID@0900,1400 PO 11/08/17 14:00 12/08/17 13:59 11/09/17 07:50 5 MG Lorazepam (Ativan Tab) 1 mg HS PO 11/08/17 21:00 12/08/17 20:59 11/08/17 21:20 1 MG Lorazepam (Ativan Tab) 0.5 mg DAILY PO 11/09/17 09:00 12/09/17 08:59 11/09/17 08:23 0.5 MG Haloperidol (Haldol Tab) 10 mg HS PO 11/08/17 21:00 12/08/17 20:59 11/08/17 21:18 10 MG Phenobarbital Sodium 50 mg/ Syringe 0.7692 ml @ 0.769 mls/min TID IV 11/08/17 21:00 12/08/17 20:59 11/09/17 07:52 0.769 MLS/MIN Lamotrigine (Lamictal Xr) 400 mg HS PO 11/09/17 21:00 12/09/17 20:59 Cephalexin Monohydrate (Keflex Cap) 500 mg QID PO 11/09/17 09:00 11/12/17 08:59 Objective Vital Signs Date Time Temp Pulse Resp B/P (MAP) Pulse Ox O2 Delivery O2 Flow Rate FiO2 11/09/17 08:00 Room Air 11/09/17 06:01 89 16 139/83 (101) 95 11/09/17 05:46 99 19 143/87 (105) 98 11/09/17 05:31 90 25 134/80 (98) 97 11/09/17 05:15 96 15 148/100 (116) 96 11/09/17 04:15 97 17 144/82 (102) 94 11/09/17 04:01 37.0 98 26 141/101 (114) 96 11/09/17 04:00 Room Air 11/09/17 03:46 96 19 141/95 (110) 93 11/09/17 03:31 37.2 97 18 145/91 (109) 94 11/09/17 03:16 102 17 158/88 (111) 98 11/09/17 03:01 37.4 104 20 151/90 (110) 96 11/09/17 02:46 101 17 148/94 (112) 95 11/09/17 02:31 102 36 149/91 (110) 94 11/09/17 02:25 37.1 100 13 132/97 (109) 97 11/09/17 02:16 37.3 97 19 140/84 (102) 96 11/09/17 02:01 37.3 99 23 135/77 (96) 96 11/09/17 01:46 95 21 135/94 (108) 98 11/09/17 01:31 95 19 144/87 (106) 97 11/09/17 01:16 37.3 101 24 143/94 (110) 96 11/09/17 01:01 99 16 135/86 (102) 97 11/09/17 00:46 37.1 99 18 140/87 (104) 96 11/09/17 00:37 102 29 150/82 (104) 98 11/09/17 00:16 37.4 104 20 145/89 (107) 96 11/09/17 00:01 37.3 100 16 131/97 (108) 98 11/08/17 23:59 Room Air 11/08/17 22:01 101 32 133/90 (104) 95 11/08/17 21:31 98 15 137/81 (99) 98 11/08/17 21:16 96 21 126/64 (84) 98 11/08/17 21:01 94 0 119/69 (86) 98 18 20:45 97 20 128/81 (97) 97 18 20:31 104 42 137/71 (93) 100 11/08/17 20:16 109 14 139/82 (101) 99 Room Air 11/08/17 20:01 37.3 101 14 129/87 (101) 98 Room Air 11/08/17 20:00 Room Air 11/08/17 19:45 106 16 112/72 (85) 99 Room Air 11/08/17 19:30 37.1 105 17 105/70 (82) 98 Room Air 11/08/17 19:16 115 30 93/63 (73) 98 Room Air 4/19/18 19:11 110 19 101/65 (77) 98 Room Air 11/08/17 19:01 109 20 95/63 (74) 97 Room Air 11/08/17 19:00 105 8 97 Room Air 11/08/17 18:50 37.7 106 18 143/87 97 11/08/17 18:20 37.7 102 18 116/91 97 11/08/17 18:05 37.3 101 20 134/87 98 11/08/17 18:00 37.3 97 22 141/88 99 11/08/17 17:00 37.4 107 24 135/75 97 11/08/17 16:35 37.1 109 20 135/104 97 11/08/17 16:20 37.3 110 16 136/89 99 11/08/17 16:00 37.3 111 16 145/77 (99) 99 Room Air 11/08/17 16:00 37.2 114 20 145/77 99 11/08/17 16:00 99 Room Air 11/08/17 15:05 37.2 120 19 117/68 98 11/08/17 14:35 37.1 120 21 128/78 99 11/08/17 14:21 36.7 120 16 134/73 100 11/08/17 14:00 37.0 116 17 117/64 (81) 98 Room Air 11/08/17 13:30 37.0 117 21 135/70 99 Room Air 11/08/17 12:42 111/58 11/08/17 12:30 96/55 11/08/17 12:19 109 18 99 11/08/17 11:49 110 16 100 11/08/17 11:30 107 11/08/17 11:27 98 Room Air 11/08/17 11:15 102/61 11/08/17 10:57 37.0 80 20 79/48 95 Room Air Physical Exam General Appearance: no apparent distress Eyes: PERRL ENT: normal ENT inspection Neck: supple, trachea midline Respiratory/Chest: lungs clear, normal breath sounds, no respiratory distress, no accessory muscle use Cardiovascular: regular rate, rhythm, no murmur Abdomen: normal bowel sounds, non tender, soft, no organomegaly, no pulsatile mass Neurologic/Psych: alert, normal mood/affect, oriented x 3 Skin: normal color, warm/dry Laboratory Results Last 24 Hours Test 11/08/17 11:10 11/08/17 14:11 11/08/17 17:07 11/08/17 21:10 White Blood Count 6.31 K/uL Red Blood Count 1.54 M/uL Hemoglobin 3.9 g/dL 6.8 g/dL Hematocrit 13.2 % 20.3 % Mean Corpuscular Volume 85.7 fL Mean Corpuscular Hemoglobin 25.3 pg Mean Corpuscular Hemoglobin Concent 29.5 g/dl Platelet Count 491 K/uL Neutrophils (%) (Auto) 73.9 % Lymphocytes (%) (Auto) 10.9 % Monocytes (%) (Auto) 12.5 % Eosinophils (%) (Auto) 0.3 % Basophils (%) (Auto) 1.3 % Neutrophils # (Auto) 4.66 K/uL Lymphocytes # (Auto) 0.69 K/uL Monocytes # (Auto) 0.79 K/uL Eosinophils # (Auto) 0.02 K/uL Basophils # (Auto) 0.08 K/uL Immature Granulocyte % (Auto) 1.1 % Immature Granulocyte # (Auto) 0.07 K/uL Hypochromasia PRESENT Anisocytosis PRESENT Stomatocytes 1+ Prothrombin Time 11.5 SECONDS Prothromb Time International Ratio 1.1 Activated Partial Thromboplast Time 21.9 SECONDS Partial Thromboplastin Ratio 0.8 Sodium Level 135 mmol/L Potassium Level 4.0 mmol/L Chloride Level 102 mmol/L Carbon Dioxide Level 24 mmol/L Anion Gap 9.0 mmol/L Blood Urea Nitrogen 12 mg/dl Creatinine 0.55 mg/dl Est Creatinine Clear Calc Drug Dose 97.0 ml/min Estimated GFR () 118.2 Estimated GFR (Non- 101.9 BUN/Creatinine Ratio 21.8 Random Glucose 106 mg/dl Calcium Level 8.2 mg/dl Total Bilirubin 0.2 mg/dl Aspartate Amino Transf (AST/SGOT) 13 U/L Alanine Aminotransferase (ALT/SGPT) 22 U/L Alkaline Phosphatase 45 U/L Total Protein 6.0 gm/dl Albumin 3.1 gm/dl Globulin 2.9 gm/dl Albumin/Globulin Ratio 1.1 Thyroid Stimulating Hormone (TSH) 1.370 uIu/ml Hepatitis C Antibody Screen NEG Urine Color YELLOW Urine Appearance CLEAR Urine pH 5.5 Urine Specific [place] 1.011 Urine Protein NEG Urine Glucose (UA) NEG Urine Ketones NEG Urine Occult Blood NEG Urine Nitrite POS Urine Bilirubin NEG Urine Urobilinogen NEG Urine Leukocyte Esterase NEG Urine WBC (Auto) 1-5 /hpf Urine RBC (Auto) 0-4 /hpf Urine Hyaline Casts (Auto) 1-5 /lpf Urine Epithelial Cells (Auto) 20-30 /lpf Urine Bacteria (Auto) 2+ Bedside Glucose 128 mg/dl Test 11/09/17 03:08 11/09/17 05:14 Bedside Glucose 106 mg/dl White Blood Count 7.41 K/uL Red Blood Count 3.27 M/uL Hemoglobin 9.4 g/dL Hematocrit 27.8 % Mean Corpuscular Volume 85.0 fL Mean Corpuscular Hemoglobin 28.7 pg Mean Corpuscular Hemoglobin Concent 33.8 g/dl RDW Standard Deviation 45.6 fL RDW Coefficient of Variation 14.7 % Platelet Count 340 K/uL Mean Platelet Volume 8.5 fL Nucleated RBC Absolute Count (auto) 0.02 K/uL Nucleated Red Blood Cells % 0.2 % Sodium Level 137 mmol/L Potassium Level 3.5 mmol/L Chloride Level 106 mmol/L Carbon Dioxide Level 26 mmol/L Anion Gap 5.0 mmol/L Blood Urea Nitrogen 8 mg/dl Creatinine 0.40 mg/dl Est Creatinine Clear Calc Drug Dose 132.9 ml/min Estimated GFR () 131.2 Estimated GFR (Non- 113.2 BUN/Creatinine Ratio 20.3 Random Glucose 96 mg/dl Calcium Level 7.5 mg/dl Assessment and Plan Patient is a 62 year old female w/ intellectual disability who presented to [facility] ED for abnormal OP labs w/ marked anemia. She has history of anemia, HGB baseline 7-8. On arrival she is hypotensive, tachycardic w/ HCT 13. 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 She is on full dose ASA and aleve BID. UGI bleed likely secondary to NSAIDs use. She has been adequately transfused w/o evidence of further GI bleed overnight. Will plan for EGD today NPO EGD today IV PPI bolus and drip Trend H&H Transfuse PRN HGB < 7 Monitor all output No NSAIDs Please call with any acute changes, questions or concerns. Attg add: I interviewed and examined pt, reviewed chart and labs. Pt without clear evidence of acute bleed on admission, admit with profound normocytic anemia, h/o NSAID use. No complaints or events o/n, s/p approp rise in hgb with x fusion. Plan EGD today.
[2017-11-09] MEDS ORDERED: LIDOCAINE HCL 2% 2 ML VIAL (20MG/ML) ONE (11:22)
[2017-11-09] MEDS ORDERED: PROPOFOL IV EMULSION 10 MG/ML 20 ML VIAL IV ONE (11:22)
[2017-11-09] MEDS: CEPHALEXIN MONOHYDRATE 500 MG CAP PO SCH ×4 (11:56→20:34)
--- NOTE | 2017-11-09 11:56 | GI REPORT ---
Procedure Date: 11/09/2017 11:02 AM Procedure: Upper GI endoscopy Indications: Acute post hemorrhagic anemia Medicines: See the Anesthesia note for documentation of the administered medications Complications: No immediate complications. Estimated Blood Loss: Estimated blood loss: none. Procedure: Pre-Anesthesia Assessment: - ASA Grade Assessment: III - A patient with severe systemic disease. After obtaining informed consent, the endoscope was passed under direct vision. Throughout the procedure, the patient's blood pressure, pulse, and oxygen saturations were monitored continuously. The Scope was introduced through the mouth, and advanced to the fourth part of duodenum. The upper GI endoscopy was accomplished without difficulty. The patient tolerated the procedure well. Findings: The distal esophagus was mildly tortuous, otherwise the esophagus was normal. There was a large clean based ulcer in the pre-pyloric antrum with smooth edges, and surrounding rim of edema but no mass effect. There was a ring in the antrum. This appears to be in the same location as in 2012. The pylorus was markedly patulous; there is little risk of pyloric stenosis with the ulcer. The remainder of the stomach was normal. The duodenum was deeply intubated and was normal. Biopsies taken from the ulcer edge. Biopsies not taken for Hp, given negative biopsies in 2012. Impression: -Clean based antral ulcer in pre-pyloric stomach. Recommendation: - Discharge patient to floor. Can d/c IV PPI gtt, and subtitute oral BID PPI. Adv diet. NSAID avoidance. Would recommend checking Hp serology and treating if positive. She is at low risk for repeat bleed. She can be discharged home tomorrow morning. She should have f/u EGD in 8 weeks, which we will arrange. Lokesh Trivedi M.D. Lokesh Trivedi MD 11/09/2017 11:56:28 AM This report has been signed electronically. Note Initiated On: 11/09/2017 11:02 AM I attest to the content of the Intraoperative Record and orders documented therein, exceptions below
--- NOTE | 2017-11-09 12:11 | Anesthesiology Progress Note ---
Anesthesia Post Op Note Date & Time Nov 09, 2017 at 12:11 Vital Signs Pain Intensity: 0.0 Vital Signs Past 12 Hours Date Time Temp Pulse Resp B/P (MAP) Pulse Ox O2 Delivery O2 Flow Rate FiO2 11/09/17 12:06 Room Air 11/09/17 12:00 36.7 85 18 136/79 (98) 96 Room Air 11/09/17 10:27 37.5 87 20 119/81 (94) 96 Room Air 11/09/17 10:00 90 19 131/72 (91) Room Air 11/09/17 08:00 Room Air 11/09/17 08:00 37.2 92 22 142/97 (112) 97 Room Air 11/09/17 06:01 89 16 139/83 (101) 95 11/09/17 05:46 99 19 143/87 (105) 98 11/09/17 05:31 90 25 134/80 (98) 97 11/09/17 05:15 96 15 148/100 (116) 96 11/09/17 04:15 97 17 144/82 (102) 94 11/09/17 04:01 37.0 98 26 141/101 (114) 96 11/09/17 04:00 Room Air 11/09/17 03:46 96 19 141/95 (110) 93 11/09/17 03:31 37.2 97 18 145/91 (109) 94 11/09/17 03:16 102 17 158/88 (111) 98 11/09/17 03:01 37.4 104 20 151/90 (110) 96 11/09/17 02:46 101 17 148/94 (112) 95 11/09/17 02:31 102 36 149/91 (110) 94 11/09/17 02:25 37.1 100 13 132/97 (109) 97 11/09/17 02:16 37.3 97 19 140/84 (102) 96 11/09/17 02:01 37.3 99 23 135/77 (96) 96 11/09/17 01:46 95 21 135/94 (108) 98 11/09/17 01:31 95 19 144/87 (106) 97 11/09/17 01:16 37.3 101 24 143/94 (110) 96 11/09/17 01:01 99 16 135/86 (102) 97 11/09/17 00:46 37.1 99 18 140/87 (104) 96 11/09/17 00:37 102 29 150/82 (104) 98 11/09/17 00:16 37.4 104 20 145/89 (107) 96 Notes Mental Status: alert / awake / arousable, participated in evaluation Pt Amnestic to Procedure: Yes Nausea / Vomiting: adequately controlled Pain: adequately controlled Airway Patency, RR, SpO2: stable & adequate BP & HR: stable & adequate Hydration State: stable & adequate Anesthetic Complications: no major complications apparent
--- NOTE | 2017-11-09 12:51 | Critical Care Progress Note ---
Critical Care Progress Note Date of Service Nov 09, 2017. Attending Dr. Hylton Subjective The patient is stable hemodynamically, she did not have any problem overnight, no nausea or vomiting and no recurrence of melena. No abdominal pain either. The patient remains n.p.o. for EGD today. Objective Physical exam on 11/09/2017 revealed vital signs are stable, S1-S2 regular rate and rhythm, lungs are clear, abdomen is soft and benign, BKA right-sided. Her hematocrit has been stable after blood transfusion. No trending down. Assessment & Plan #1 GI bleeding, appreciate GI input in that regard, the patient underwent EGD which showed clean antral ulcer nonbleeding, unchanged from previous EGD. 2. History of rheumatoid arthritis treated with NSAID as an outpatient. 3. History of bipolar disorder. 4. History of intellectual disability. 5. Seizure disorder. Well-controlled no recurrence. 6. History of osteomyelitis status post BKA on the right. Plan: 1. I will stop Protonix drip. 2. Start Protonix p.o. twice daily. 3. Start oral intake. 4. The patient will need EGD in 8 weeks per GI. 5. Stop IV fluids. 6. Avoid NSAID. 7. She will need to see a board certified music therapist as an outpatient for treatment of rheumatoid arthritis. 8. Continue her antiepileptic medications. 9. Venodyne boots. 10. Physical therapy. 11. Disposition plan per . Thank you for the kind referral, case discussed with the staff on rounds and details, critical care time spent with the patient was 35 minutes. Appreciate all notes. Data Medications: Current Inpatient Medications Medications (Trade) Dose Ordered Sig/Christopher Route Start Time Stop Time Status Last Admin Dose Admin Acetaminophen (Tylenol Tab) 650 mg Q4H PRN PO 11/08/17 12:45 12/08/17 12:44 Miscellaneous Information ([facility] Protocol For Hyperglycemia) 1 ea PRN PRN N/A 11/08/17 12:45 11/10/17 12:44 Benztropine Mesylate (Cogentin Tab) 1 mg TID PO 11/08/17 14:00 12/08/17 13:59 11/09/17 07:50 1 MG Carbamazepine (Tegretol Tab) 400 mg TID PO 11/08/17 14:00 12/08/17 13:59 11/09/17 07:50 400 MG Haloperidol (Haldol Tab) 5 mg BID@0900,1400 PO 11/08/17 14:00 12/08/17 13:59 11/09/17 07:50 5 MG Lorazepam (Ativan Tab) 1 mg HS PO 11/08/17 21:00 12/08/17 20:59 11/08/17 21:20 1 MG Lorazepam (Ativan Tab) 0.5 mg DAILY PO 11/09/17 09:00 12/09/17 08:59 11/09/17 08:23 0.5 MG Haloperidol (Haldol Tab) 10 mg HS PO 11/08/17 21:00 12/08/17 20:59 11/08/17 21:18 10 MG Phenobarbital Sodium 50 mg/ Syringe 0.7692 ml @ 0.769 mls/min TID IV 11/08/17 21:00 12/08/17 20:59 11/09/17 07:52 0.769 MLS/MIN Lamotrigine (Lamictal Xr) 400 mg HS PO 11/09/17 21:00 12/09/17 20:59 Cephalexin Monohydrate (Keflex Cap) 500 mg QID PO 11/09/17 09:00 11/12/17 08:59 11/09/17 11:56 500 MG Pantoprazole Sodium (Protonix Tab) 40 mg BID PO 11/09/17 21:00 12/09/17 20:59 UNV Vital Signs: Date Time Temp Pulse Resp B/P (MAP) Pulse Ox O2 Delivery O2 Flow Rate FiO2 11/09/17 12:06 Room Air 11/09/17 12:00 36.7 85 18 136/79 (98) 96 Room Air 11/09/17 10:27 37.5 87 20 119/81 (94) 96 Room Air 11/09/17 10:00 90 19 131/72 (91) Room Air 11/09/17 08:00 Room Air 11/09/17 08:00 37.2 92 22 142/97 (112) 97 Room Air 11/09/17 06:01 89 16 139/83 (101) 95 11/09/17 05:46 99 19 143/87 (105) 98 11/09/17 05:31 90 25 134/80 (98) 97 11/09/17 05:15 96 15 148/100 (116) 96 11/09/17 04:15 97 17 144/82 (102) 94 11/09/17 04:01 37.0 98 26 141/101 (114) 96 11/09/17 04:00 Room Air 11/09/17 03:46 96 19 141/95 (110) 93 11/09/17 03:31 37.2 97 18 145/91 (109) 94 11/09/17 03:16 102 17 158/88 (111) 98 11/09/17 03:01 37.4 104 20 151/90 (110) 96 11/09/17 02:46 101 17 148/94 (112) 95 11/09/17 02:31 102 36 149/91 (110) 94 11/09/17 02:25 37.1 100 13 132/97 (109) 97 11/09/17 02:16 37.3 97 19 140/84 (102) 96 11/09/17 02:01 37.3 99 23 135/77 (96) 96 11/09/17 01:46 95 21 135/94 (108) 98 11/09/17 01:31 95 19 144/87 (106) 97 11/09/17 01:16 37.3 101 24 143/94 (110) 96 11/09/17 01:01 99 16 135/86 (102) 97 11/09/17 00:46 37.1 99 18 140/87 (104) 96 11/09/17 00:37 102 29 150/82 (104) 98 11/09/17 00:16 37.4 104 20 145/89 (107) 96 11/09/17 00:01 37.3 100 16 131/97 (108) 98 11/08/17 23:59 Room Air 11/08/17 22:01 101 32 133/90 (104) 95 11/08/17 21:31 98 15 137/81 (99) 98 11/08/17 21:16 96 21 126/64 (84) 98 11/08/17 21:01 94 0 119/69 (86) 98 11/08/17 20:45 97 20 128/81 (97) 97 11/08/17 20:31 104 42 137/71 (93) 100 11/08/17 20:16 109 14 139/82 (101) 99 Room Air 11/08/17 20:01 37.3 101 14 129/87 (101) 98 Room Air 11/08/17 20:00 Room Air 11/08/17 19:45 106 16 112/72 (85) 99 Room Air 11/08/17 19:30 37.1 105 17 105/70 (82) 98 Room Air 11/08/17 19:16 115 30 93/63 (73) 98 Room Air 11/08/17 19:11 110 19 101/65 (77) 98 Room Air 11/08/17 19:01 109 20 95/63 (74) 97 Room Air 11/08/17 19:00 105 8 97 Room Air 11/08/17 18:50 37.7 106 18 143/87 97 11/08/17 18:20 37.7 102 18 116/91 97 11/08/17 18:05 37.3 101 20 134/87 98 11/08/17 18:00 37.3 97 22 141/88 99 11/08/17 17:00 37.4 107 24 135/75 97 11/08/17 16:35 37.1 109 20 135/104 97 11/08/17 16:20 37.3 110 16 136/89 99 11/08/17 16:00 37.3 111 16 145/77 (99) 99 Room Air 11/08/17 16:00 37.2 114 20 145/77 99 11/08/17 16:00 99 Room Air 11/08/17 15:05 37.2 120 19 117/68 98 11/08/17 14:35 37.1 120 21 128/78 99 11/08/17 14:21 36.7 120 16 134/73 100 11/08/17 14:00 37.0 116 17 117/64 (81) 98 Room Air 11/08/17 13:30 37.0 117 21 135/70 99 Room Air Laboratory Results: Last 24 Hours Test 11/08/17 14:11 11/08/17 17:07 11/08/17 21:10 11/09/17 03:08 Urine Color YELLOW Urine Appearance CLEAR Urine pH 5.5 Urine Specific Bradley 1.011 Urine Protein NEG Urine Glucose (UA) NEG Urine Ketones NEG Urine Occult Blood NEG Urine Nitrite POS Urine Bilirubin NEG Urine Urobilinogen NEG Urine Leukocyte Esterase NEG Urine WBC (Auto) 1-5 /hpf Urine RBC (Auto) 0-4 /hpf Urine Hyaline Casts (Auto) 1-5 /lpf Urine Epithelial Cells (Auto) 20-30 /lpf Urine Bacteria (Auto) 2+ Bedside Glucose 128 mg/dl 106 mg/dl Hemoglobin 6.8 g/dL Hematocrit 20.3 % Test 11/09/17 05:14 White Blood Count 7.41 K/uL Red Blood Count 3.27 M/uL Hemoglobin 9.4 g/dL Hematocrit 27.8 % Mean Corpuscular Volume 85.0 fL Mean Corpuscular Hemoglobin 28.7 pg Mean Corpuscular Hemoglobin Concent 33.8 g/dl RDW Standard Deviation 45.6 fL RDW Coefficient of Variation 14.7 % Platelet Count 340 K/uL Mean Platelet Volume 8.5 fL Nucleated RBC Absolute Count (auto) 0.02 K/uL Nucleated Red Blood Cells % 0.2 % Sodium Level 137 mmol/L Potassium Level 3.5 mmol/L Chloride Level 106 mmol/L Carbon Dioxide Level 26 mmol/L Anion Gap 5.0 mmol/L Blood Urea Nitrogen 8 mg/dl Creatinine 0.40 mg/dl Est Creatinine Clear Calc Drug Dose 132.9 ml/min Estimated GFR () 131.2 Estimated GFR (Non- 113.2 BUN/Creatinine Ratio 20.3 Random Glucose 96 mg/dl Calcium Level 7.5 mg/dl
[2017-11-09 14:12] LABS: HEMATOCRIT 27.8 % (37-47); HEMOGLOBIN 9.3 g/dL (12.0-16.0)
--- NOTE | 2017-11-09 15:16 | Progress Note ---
Internal Med Progress Note Date of Service: Nov 09, 2017. Provider Documentation: SUBJECTIVE: The patient was seen and examined in ICU She has history of rheumatoid arthritis and has been taking [id number] NSAID use for pain control Was seen in the PCP clinic with a hemoglobin of 4 She complained to have fatigue and shortness of breath on exertion Status post EGD today and denies any complaints OBJECTIVE: Vital Signs-as noted below Exam: General-no apparent distress Eyes-normal ENT-normal Neck-supple Lungs-clear to auscultation bilaterally Heart-S1-S2 regular no murmur appreciated, Abdomen-benign, soft, mildly tender epigastrium, bowel sounds present Extremities-negative Neuro-AAO 3 Generally weak, no focal neuro deficit Lab data as noted below. ASSESSMENT & PLAN: NSAID Induced Gastric ulcer/Gastritis-no active bleeding PROFOUND ANEMIA LIKELY UPPER GI BLEEDING -Patient referred to ED by PCP where she was evaluated for weakness and fatigue and found to have a hemoglobin of 4.1; in the ED, hemoglobin found to be 3.9, systolic blood pressures running in the 90s to low 100s and heart rates in the 110's -Patient had EGD in 2011 that showed gastritis, nonobstructing ulcer with clean base-findings were felt to be due to chronic NSAID use and patient was advised for an 8 week follow-up endoscopy however did not have a completed -Noted that patient takes a full dose aspirin daily and Aleve twice a day -History of chronic anemia, baseline hemoglobin runs between 7-8 -Stool is heme positive in ED -Started on Protonix drip in the ED, will continue -Appreciate GI input -EGD-Gastritis with Gastric ulcer-no active bleeding SEIZURE DISORDER, HISTORY OF PSYCHOSIS AND HALLUCINATIONS -Continue benztropine, carbamazepine, haloperidol, lamotrigine, Lorazepam, and phenobarbital No acute episode DVT PROPHYLAXIS -SCDs due to profound anemia and GI bleeding Vital Signs: Date Time Temp Pulse Resp B/P (MAP) Pulse Ox O2 Delivery O2 Flow Rate FiO2 11/09/17 14:00 95 15 131/76 (94) 97 Room Air 11/09/17 12:06 Room Air 11/09/17 12:00 36.7 85 18 136/79 (98) 96 Room Air 11/09/17 10:27 37.5 87 20 119/81 (94) 96 Room Air 11/09/17 10:00 90 19 131/72 (91) Room Air 11/09/17 08:00 Room Air 11/09/17 08:00 37.2 92 22 142/97 (112) 97 Room Air 11/09/17 06:01 89 16 139/83 (101) 95 11/09/17 05:46 99 19 143/87 (105) 98 11/09/17 05:31 90 25 134/80 (98) 97 11/09/17 05:15 96 15 148/100 (116) 96 11/09/17 04:15 97 17 144/82 (102) 94 11/09/17 04:01 37.0 98 26 141/101 (114) 96 11/09/17 04:00 Room Air 11/09/17 03:46 96 19 141/95 (110) 93 11/09/17 03:31 37.2 97 18 145/91 (109) 94 11/09/17 03:16 102 17 158/88 (111) 98 11/09/17 03:01 37.4 104 20 151/90 (110) 96 11/09/17 02:46 101 17 148/94 (112) 95 11/09/17 02:31 102 36 149/91 (110) 94 11/09/17 02:25 37.1 100 13 132/97 (109) 97 11/09/17 02:16 37.3 97 19 140/84 (102) 96 11/09/17 02:01 37.3 99 23 135/77 (96) 96 11/09/17 01:46 95 21 135/94 (108) 98 11/09/17 01:31 95 19 144/87 (106) 97 11/09/17 01:16 37.3 101 24 143/94 (110) 96 11/09/17 01:01 99 16 135/86 (102) 97 11/09/17 00:46 37.1 99 18 140/87 (104) 96 11/09/17 00:37 102 29 150/82 (104) 98 11/09/17 00:16 37.4 104 20 145/89 (107) 96 11/09/17 00:01 37.3 100 16 131/97 (108) 98 11/08/17 23:59 Room Air 11/08/17 22:01 101 32 133/90 (104) 95 11/08/17 21:31 98 15 137/81 (99) 98 11/08/17 21:16 96 21 126/64 (84) 98 11/08/17 21:01 94 0 119/69 (86) 98 11/08/17 20:45 97 20 128/81 (97) 97 11/08/17 20:31 104 42 137/71 (93) 100 11/08/17 20:16 109 14 139/82 (101) 99 Room Air 11/08/17 20:01 37.3 101 14 129/87 (101) 98 Room Air 11/08/17 20:00 Room Air 11/08/17 19:45 106 16 112/72 (85) 99 Room Air 11/08/17 19:30 37.1 105 17 105/70 (82) 98 Room Air 11/08/17 19:16 115 30 93/63 (73) 98 Room Air 11/08/17 19:11 110 19 101/65 (77) 98 Room Air 11/08/17 19:01 109 20 95/63 (74) 97 Room Air 11/08/17 19:00 105 8 97 Room Air 11/08/17 18:50 37.7 106 18 143/87 97 11/08/17 18:20 37.7 102 18 116/91 97 11/08/17 18:05 37.3 101 20 134/87 98 11/08/17 18:00 37.3 97 22 141/88 99 11/08/17 17:00 37.4 107 24 135/75 97 11/08/17 16:35 37.1 109 20 135/104 97 11/08/17 16:20 37.3 110 16 136/89 99 11/08/17 16:00 37.3 111 16 145/77 (99) 99 Room Air 11/08/17 16:00 37.2 114 20 145/77 99 11/08/17 16:00 99 Room Air Lab Results: Results Past 24 Hours Test 11/08/17 17:07 11/08/17 21:10 11/09/17 03:08 11/09/17 05:14 Range/Units Bedside Glucose 128 106 70-90 mg/dl Hemoglobin 6.8 9.4 12.0-16.0 g/dL Hematocrit 20.3 27.8 37-47 % White Blood Count 7.41 4.8-10.8 K/uL Red Blood Count 3.27 4.2-5.4 M/uL Mean Corpuscular Volume 85.0 80-100 fL Mean Corpuscular Hemoglobin 28.7 25-34 pg Mean Corpuscular Hemoglobin Concent 33.8 32-36 g/dl RDW Standard Deviation 45.6 36.4-46.3 fL RDW Coefficient of Variation 14.7 11.5-14.5 % Platelet Count 340 130-400 K/uL Mean Platelet Volume 8.5 7.4-10.4 fL Nucleated RBC Absolute Count (auto) 0.02 0-0 K/uL Nucleated Red Blood Cells % 0.2 % Sodium Level 137 136-145 mmol/L Potassium Level 3.5 3.5-5.1 mmol/L Chloride Level 106 98-107 mmol/L Carbon Dioxide Level 26 21-32 mmol/L Anion Gap 5.0 3-11 mmol/L Blood Urea Nitrogen 8 7-18 mg/dl Creatinine 0.40 0.60-1.20 mg/dl Est Creatinine Clear Calc Drug Dose 132.9 ml/min Estimated GFR () 131.2 Estimated GFR (Non- 113.2 BUN/Creatinine Ratio 20.3 10-20 Random Glucose 96 70-99 mg/dl Calcium Level 7.5 8.5-10.1 mg/dl Test 11/09/17 14:00 Range/Units Hemoglobin 9.3 12.0-16.0 g/dL Hematocrit 27.8 37-47 %
[2017-11-09] MEDS: LAMOTRIGINE 200 MG PO SCH (20:34)
[2017-11-09] MEDS: PANTOprazole SOD 40 MG TAB PO SCH (20:38)
[2017-11-10 00:01] VITALS: O2SAT 98
[2017-11-10 06:42] LABS: HEMATOCRIT 28.8 % (37-47); HEMOGLOBIN 9.7 g/dL (12.0-16.0); MEAN CELL VOLUME 84.7 fL (80-100); MEAN CORPUSCULAR HEMOGLOBIN 28.5 pg (25-34); MEAN CORPUSCULAR HGB CONC 33.7 g/dl (32-36); MEAN PLATELET VOLUME 8.6 fL (7.4-10.4); PLATELET COUNT 335 K/uL (130-400); RED CELL DISTRIBUTION WIDTH CV 14.9 % (11.5-14.5); RED CELL DISTRIBUTION WIDTH SD 45.9 fL (36.4-46.3); WHITE BLOOD COUNT 6.61 K/uL (4.8-10.8)
[2017-11-10 07:27] VITALS: BP 146/85; PULSE 88; TEMP 36.8; O2SAT 98
[2017-11-10 07:32] LABS: CALCIUM 7.7 mg/dl (8.5-10.1); CREATININE 0.41 mg/dl (0.60-1.20); PHOSPHORUS 2.4 mg/dl (2.5-4.9); POTASSIUM 2.8 mmol/L (3.5-5.1)
[2017-11-10] MEDS: BENZTROPINE MESYLATE 1 MG TAB PO SCH ×3 (08:45→20:03)
[2017-11-10] MEDS: HALOPERIDOL 5 MG TAB PO SCH ×3 (08:45→19:57)
[2017-11-10] MEDS: PANTOprazole SOD 40 MG TAB PO SCH ×2 (08:45→19:54)
[2017-11-10] MEDS: LORAZEPAM 0.5 MG TAB PO SCH ×2 (08:45→19:51)
[2017-11-10] MEDS: PHENOBARBITAL SOD IV SCH (08:46)
[2017-11-10] MEDS: CARBAMAZEPINE 200 MG TAB PO SCH ×3 (08:46→19:55)
[2017-11-10] MEDS: CEPHALEXIN MONOHYDRATE 500 MG CAP PO SCH ×4 (08:46→19:52)
[2017-11-10] MEDS ORDERED: POTASSIUM CHLORIDE 10 MEQ TABCR PO STA (09:38)
[2017-11-10] MEDS ORDERED: NSS + 20MEQ KCL 1000ML 1,000 ML IV SCH (10:00)
[2017-11-10 11:46] VITALS: BP 119/65; PULSE 104; TEMP 36.8; O2SAT 97
[2017-11-10] MEDS: PHENOBARBITAL 15 MG TAB PO SCH ×2 (14:08→19:57)
--- NOTE | 2017-11-10 14:21 | Progress Note ---
Internal Med Progress Note Date of Service: Nov 10, 2017. Provider Documentation: SUBJECTIVE: The patient was seen and examined in ICU She has history of rheumatoid arthritis and has been taking [id number] NSAID use for pain control Was seen in the PCP clinic with a hemoglobin of 4 She complained to have fatigue and shortness of breath on exertion Status post EGD today and denies any complaints Nausea and vomiting-no coffee ground like vomitus Denies any other symptoms OBJECTIVE: Vital Signs-as noted below Exam: General-no apparent distress Eyes-normal ENT-normal Neck-supple Lungs-clear to auscultation bilaterally Heart-S1-S2 regular no murmur appreciated, Abdomen-benign, soft, mildly tender epigastrium, bowel sounds present Extremities-negative Neuro-AAO 3 Generally weak, no focal neuro deficit Lab data as noted below. ASSESSMENT & PLAN: NSAID Induced Gastric ulcer/Gastritis-no active bleeding PROFOUND ANEMIA LIKELY UPPER GI BLEEDING -Patient referred to ED by PCP where she was evaluated for weakness and fatigue and found to have a hemoglobin of 4.1; in the ED, hemoglobin found to be 3.9, systolic blood pressures running in the 90s to low 100s and heart rates in the 110's -Patient had EGD in 2011 that showed gastritis, nonobstructing ulcer with clean base-findings were felt to be due to chronic NSAID use and patient was advised for an 8 week follow-up endoscopy however did not have a completed -Noted that patient takes a full dose aspirin daily and Aleve twice a day -History of chronic anemia, baseline hemoglobin runs between 7-8 -Stool is heme positive in ED -Started on Protonix drip in the ED, will continue -Appreciate GI input -EGD-Gastritis with Gastric ulcer-no active bleeding -Hb remains >9 -monitor CBC Hyponatremia and Hypokalemia Will give NS with K supplement Monitor SEIZURE DISORDER, HISTORY OF PSYCHOSIS AND HALLUCINATIONS -Continue benztropine, carbamazepine, haloperidol, lamotrigine, Lorazepam, and phenobarbital No acute episode DVT PROPHYLAXIS -SCDs due to profound anemia and GI bleeding Vital Signs: Date Time Temp Pulse Resp B/P (MAP) Pulse Ox O2 Delivery O2 Flow Rate FiO2 11/10/17 11:46 36.8 104 20 119/65 (83) 97 Room Air 11/10/17 08:00 Room Air 11/10/17 07:27 36.8 88 18 146/85 (105) 98 Room Air 11/10/17 04:00 Room Air 11/10/17 00:01 98 Room Air 11/09/17 23:51 36.2 76 20 121/79 (93) 98 Room Air 11/09/17 20:00 97 Room Air 11/09/17 19:33 37.3 104 16 119/69 (86) 97 Room Air 11/09/17 17:16 36.7 92 26 96 11/09/17 16:00 Room Air 11/09/17 16:00 92 26 133/82 (99) 96 Room Air Lab Results: Results Past 24 Hours Test 11/09/17 16:31 11/10/17 06:17 Range/Units Bedside Glucose 115 70-90 mg/dl White Blood Count 6.61 4.8-10.8 K/uL Red Blood Count 3.40 4.2-5.4 M/uL Hemoglobin 9.7 12.0-16.0 g/dL Hematocrit 28.8 37-47 % Mean Corpuscular Volume 84.7 80-100 fL Mean Corpuscular Hemoglobin 28.5 25-34 pg Mean Corpuscular Hemoglobin Concent 33.7 32-36 g/dl RDW Standard Deviation 45.9 36.4-46.3 fL RDW Coefficient of Variation 14.9 11.5-14.5 % Platelet Count 335 130-400 K/uL Mean Platelet Volume 8.6 7.4-10.4 fL Sodium Level 130 136-145 mmol/L Potassium Level 2.8 3.5-5.1 mmol/L Chloride Level 97 98-107 mmol/L Carbon Dioxide Level 25 21-32 mmol/L Anion Gap 8.0 3-11 mmol/L Blood Urea Nitrogen 7 7-18 mg/dl Creatinine 0.41 0.60-1.20 mg/dl Est Creatinine Clear Calc Drug Dose 127.8 ml/min Estimated GFR () 130.1 Estimated GFR (Non- 112.3 BUN/Creatinine Ratio 17.0 10-20 Random Glucose 148 70-99 mg/dl Calcium Level 7.7 8.5-10.1 mg/dl Phosphorus Level 2.4 2.5-4.9 mg/dl Magnesium Level 1.9 1.8-2.4 mg/dl
[2017-11-10 15:22] VITALS: BP 137/76; PULSE 89; TEMP 37; O2SAT 97
[2017-11-10 19:35] VITALS: BP 127/73; PULSE 87; TEMP 36.9; O2SAT 97
[2017-11-10] MEDS: LAMOTRIGINE 200 MG PO SCH (19:54)
[2017-11-10 22:48] VITALS: BP 150/78; PULSE 89; TEMP 36.9; O2SAT 97
[2017-11-11 04:00] VITALS: BP 156/81; PULSE 100; TEMP 37.1; O2SAT 95
[2017-11-11 06:33] LABS: HEMATOCRIT 30.3 % (37-47); MEAN CELL VOLUME 85.8 fL (80-100); MEAN CORPUSCULAR HEMOGLOBIN 28.3 pg (25-34); MEAN PLATELET VOLUME 8.8 fL (7.4-10.4); PLATELET COUNT 394 K/uL (130-400); RED CELL DISTRIBUTION WIDTH CV 15.1 % (11.5-14.5); RED CELL DISTRIBUTION WIDTH SD 46.8 fL (36.4-46.3); WHITE BLOOD COUNT 6.81 K/uL (4.8-10.8)
[2017-11-11 07:23] LABS: CALCIUM 7.9 mg/dl (8.5-10.1); CREATININE 0.43 mg/dl (0.60-1.20); POTASSIUM 3.4 mmol/L (3.5-5.1)
[2017-11-11 07:38] VITALS: BP 134/67; PULSE 88; TEMP 37.2; O2SAT 97
[2017-11-11] MEDS: BENZTROPINE MESYLATE 1 MG TAB PO SCH ×3 (07:59→20:41)
[2017-11-11] MEDS: CEPHALEXIN MONOHYDRATE 500 MG CAP PO SCH ×4 (08:00→20:40)
[2017-11-11] MEDS: PANTOprazole SOD 40 MG TAB PO SCH ×2 (08:00→20:40)
[2017-11-11] MEDS: HALOPERIDOL 5 MG TAB PO SCH ×3 (08:00→20:42)
[2017-11-11] MEDS: PHENOBARBITAL 15 MG TAB PO SCH ×3 (08:00→20:41)
[2017-11-11] MEDS: CARBAMAZEPINE 200 MG TAB PO SCH ×3 (08:00→20:41)
[2017-11-11] MEDS: LORAZEPAM 0.5 MG TAB PO SCH ×2 (08:00→20:40)
[2017-11-11] MEDS ORDERED: POTASSIUM CHLORIDE 10 MEQ TABCR PO STA (08:05)
[2017-11-11 09:54] VITALS: BP 134/67; PULSE 88; TEMP 37.2; O2SAT 97
--- NOTE | 2017-11-11 11:01 | Progress Note ---
Internal Med Progress Note Date of Service: Nov 11, 2017. Provider Documentation: SUBJECTIVE: The patient was seen and examined in ICU She has history of rheumatoid arthritis and has been taking [id number] NSAID use for pain control Was seen in the PCP clinic with a hemoglobin of 4 She complained to have fatigue and shortness of breath on exertion Status post EGD today and denies any complaints Generally weak but no other symptoms OBJECTIVE: Vital Signs-as noted below Exam: General-no apparent distress at rest Eyes-normal ENT-normal Neck-supple Lungs-clear to auscultation bilaterally Heart-S1-S2 regular no murmur appreciated, Abdomen-benign, soft, mildly tender epigastrium, bowel sounds present Extremities-negative Neuro-AAO 3 Generally weak, no focal neuro deficit Lab data as noted below. ASSESSMENT & PLAN: NSAID Induced Gastric ulcer/Gastritis-no active bleeding PROFOUND ANEMIA LIKELY UPPER GI BLEEDING -Patient referred to ED by PCP where she was evaluated for weakness and fatigue and found to have a hemoglobin of 4.1; in the ED, hemoglobin found to be 3.9, systolic blood pressures running in the 90s to low 100s and heart rates in the 110's -Patient had EGD in 2011 that showed gastritis, nonobstructing ulcer with clean base-findings were felt to be due to chronic NSAID use and patient was advised for an 8 week follow-up endoscopy however did not have a completed -Noted that patient takes a full dose aspirin daily and Aleve twice a day -History of chronic anemia, baseline hemoglobin runs between 7-8 -Stool is heme positive in ED -Started on Protonix drip in the ED, will continue -Appreciate GI input -EGD-Gastritis with Gastric ulcer-no active bleeding -Hb remains >9 Hyponatremia and Hypokalemia Will give NS with K supplement Monitor -remains low Will administer more NS and monitor level; tomorrow Likely to be discharged tomorrow SEIZURE DISORDER, HISTORY OF PSYCHOSIS AND HALLUCINATIONS -Continue benztropine, carbamazepine, haloperidol, lamotrigine, Lorazepam, and phenobarbital No acute episode DVT PROPHYLAXIS -SCDs due to profound anemia and GI bleeding Code Status:Full Code Likely discharge tomorrow Vital Signs: Date Time Temp Pulse Resp B/P (MAP) Pulse Ox O2 Delivery O2 Flow Rate FiO2 11/11/17 08:00 Room Air 11/11/17 07:38 37.2 88 18 134/67 (89) 97 Room Air 4/22/18 04:00 37.1 100 17 156/81 (106) 95 Room Air 11/11/17 04:00 Room Air 11/11/17 00:01 Room Air 11/10/17 22:48 36.9 89 18 150/78 (102) 97 Room Air 11/10/17 20:00 Room Air 11/10/17 19:35 36.9 87 19 127/73 (91) 97 Room Air 11/10/17 16:00 Room Air 11/10/17 15:22 37.0 89 20 137/76 (96) 97 Room Air 11/10/17 12:00 Room Air 11/10/17 11:46 36.8 104 20 119/65 (83) 97 Room Air Lab Results: Results Past 24 Hours Test 11/11/17 06:19 Range/Units White Blood Count 6.81 4.8-10.8 K/uL Red Blood Count 3.53 4.2-5.4 M/uL Hemoglobin 10.0 12.0-16.0 g/dL Hematocrit 30.3 37-47 % Mean Corpuscular Volume 85.8 80-100 fL Mean Corpuscular Hemoglobin 28.3 25-34 pg Mean Corpuscular Hemoglobin Concent 33.0 32-36 g/dl RDW Standard Deviation 46.8 36.4-46.3 fL RDW Coefficient of Variation 15.1 11.5-14.5 % Platelet Count 394 130-400 K/uL Mean Platelet Volume 8.8 7.4-10.4 fL Sodium Level 131 136-145 mmol/L Potassium Level 3.4 3.5-5.1 mmol/L Chloride Level 100 98-107 mmol/L Carbon Dioxide Level 23 21-32 mmol/L Anion Gap 8.0 3-11 mmol/L Blood Urea Nitrogen 6 7-18 mg/dl Creatinine 0.43 0.60-1.20 mg/dl Est Creatinine Clear Calc Drug Dose 119.5 ml/min Estimated GFR () 128.1 Estimated GFR (Non- 110.6 BUN/Creatinine Ratio 14.8 10-20 Random Glucose 115 70-99 mg/dl Calcium Level 7.9 8.5-10.1 mg/dl Magnesium Level 2.0 1.8-2.4 mg/dl
[2017-11-11 12:10] VITALS: BP 137/78; PULSE 90; TEMP 37; O2SAT 98
[2017-11-11] MEDS: NSS + 20MEQ KCL 1000ML 1,000 ML IV SCH (13:40)
[2017-11-11 15:19] VITALS: BP 135/79; PULSE 93; TEMP 37; O2SAT 98
[2017-11-11] MEDS: LAMOTRIGINE 200 MG PO SCH (20:42)
[2017-11-11 22:55] VITALS: BP 116/66; PULSE 76; TEMP 36.6; O2SAT 95
[2017-11-12] MEDS ORDERED: NURSING DECISION MEDICATION ORDER SCH (03:30)
[2017-11-12] MEDS: NSS + 20MEQ KCL 1000ML 1,000 ML IV SCH (04:28)
--- NOTE | 2017-11-12 04:39 | Progress Note ---
Post ICU Progress Note Date & Time Nov 12, 2017 at 04:36 Vital Signs Vital Signs Past 12 Hours Date Time Temp Pulse Resp B/P (MAP) Pulse Ox O2 Delivery O2 Flow Rate FiO2 11/12/17 00:20 Room Air 11/11/17 22:55 36.6 76 14 116/66 (83) 95 Room Air Notes Mental Status: alert / awake Nausea / Vomiting: adequately controlled Pain: adequately controlled Airway Patency, RR, SpO2: stable & adequate BP & HR: stable & adequate Patient is a 62-year-old female initially admitted for concerns of upper GI bleed with melanotic stools. She was profoundly anemic on presentation with an H&H of 3.9 and 13.2, respectively. She underwent upper endoscopy the following day and was found to have a well-demarcated ulceration of her duodenum without need for any intervention. The patient has maintained her H&H throughout the remainder of her stay. She has had some slight electrolyte disturbances which has slightly prolonged her stay. Otherwise, the patient has progressed well. On evaluation this morning, the patient is resting comfortably. She reports feeling "much better after getting that blood." She is excited to hopefully be discharged soon. She offers no complaints at this time. Consider outpatient follow up in 1 to 2 weeks with: GI, PCP Repeat imaging needed: None Follow up cultures: None Reviewed progress notes, labs, and inpatient medication list Continue current management Additional recommendations: Close GI f/u as recommended. Thank you for allowing us to participate in the care of this patient. At this time, Critical Care Services will sign off on this case. Please feel free to reconsult as needed. Consults & Procedures Consultants: IBETH De Oliveira/Justen
[2017-11-12 06:40] LABS: HEMOGLOBIN 9.8 g/dL (12.0-16.0); MEAN CELL VOLUME 86.5 fL (80-100); MEAN CORPUSCULAR HEMOGLOBIN 28.2 pg (25-34); MEAN CORPUSCULAR HGB CONC 32.7 g/dl (32-36); MEAN PLATELET VOLUME 8.6 fL (7.4-10.4); PLATELET COUNT 359 K/uL (130-400); RED CELL DISTRIBUTION WIDTH CV 15.4 % (11.5-14.5); RED CELL DISTRIBUTION WIDTH SD 48.3 fL (36.4-46.3)
[2017-11-12 07:08] VITALS: BP 131/74; PULSE 80; TEMP 36.8; O2SAT 98
[2017-11-12 07:09] LABS: CALCIUM 7.9 mg/dl (8.5-10.1); CREATININE 0.49 mg/dl (0.60-1.20); POTASSIUM 3.9 mmol/L (3.5-5.1)
[2017-11-12] MEDS: PHENOBARBITAL 15 MG TAB PO SCH ×2 (09:15→13:38)
[2017-11-12] MEDS: LORAZEPAM 0.5 MG TAB PO SCH (09:15)
[2017-11-12] MEDS: PANTOprazole SOD 40 MG TAB PO SCH (09:16)
[2017-11-12] MEDS: HALOPERIDOL 5 MG TAB PO SCH ×2 (09:16→13:38)
[2017-11-12] MEDS: BENZTROPINE MESYLATE 1 MG TAB PO SCH ×2 (09:16→13:38)
[2017-11-12] MEDS: CARBAMAZEPINE 200 MG TAB PO SCH ×2 (09:17→13:38)
--- NOTE | 2017-11-12 11:03 | Progress Note ---
Internal Med Progress Note Date of Service: Nov 12, 2017. Provider Documentation: SUBJECTIVE: The patient was seen and examined in ICU She has history of rheumatoid arthritis and has been taking [id number] NSAID use for pain control Was seen in the PCP clinic with a hemoglobin of 4 No more symptoms ,no abdominal pain,nausea and or vomiting Wants to go home OBJECTIVE: Vital Signs-as noted below Exam: General-no apparent distress at rest Eyes-normal ENT-normal Neck-supple Lungs-clear to auscultation bilaterally Heart-S1-S2 regular no murmur appreciated, Abdomen-benign, soft, mildly tender epigastrium, bowel sounds present Extremities-negative Neuro-AAO 3 Generally weak, no focal neuro deficit Lab data as noted below. ASSESSMENT & PLAN: NSAID Induced Gastric ulcer/Gastritis-no active bleeding PROFOUND ANEMIA LIKELY UPPER GI BLEEDING -Patient referred to ED by PCP where she was evaluated for weakness and fatigue and found to have a hemoglobin of 4.1; in the ED, hemoglobin found to be 3.9, systolic blood pressures running in the 90s to low 100s and heart rates in the 110's -Patient had EGD in 2011 that showed gastritis, nonobstructing ulcer with clean base-findings were felt to be due to chronic NSAID use and patient was advised for an 8 week follow-up endoscopy however did not have a completed -Noted that patient takes a full dose aspirin daily and Aleve twice a day -History of chronic anemia, baseline hemoglobin runs between 7-8 -Stool is heme positive in ED -Started on Protonix drip in the ED, will continue -Appreciate GI input -EGD-Gastritis with Gastric ulcer-no active bleeding -Hb remains >9 Hyponatremia and Hypokalemia Will give NS with K supplement Monitor -remains low Will administer more NS and monitor level; tomorrow Slightly better today Will discharge home this afternoon SEIZURE DISORDER, HISTORY OF PSYCHOSIS AND HALLUCINATIONS -Continue benztropine, carbamazepine, haloperidol, lamotrigine, Lorazepam, and phenobarbital No acute episode DVT PROPHYLAXIS -SCDs due to profound anemia and GI bleeding Code Status:Full Code Discharge this afternoon Vital Signs: Date Time Temp Pulse Resp B/P (MAP) Pulse Ox O2 Delivery O2 Flow Rate FiO2 11/12/17 07:08 36.8 80 15 131/74 (93) 98 Room Air 11/12/17 00:20 Room Air 11/11/17 22:55 36.6 76 14 116/66 (83) 95 Room Air 11/11/17 15:45 Room Air 11/11/17 15:19 37.0 93 16 135/79 (97) 98 Room Air 11/11/17 12:40 Room Air 11/11/17 12:10 37.0 90 18 137/78 (97) 98 Room Air Lab Results: Results Past 24 Hours Test 11/12/17 06:33 Range/Units White Blood Count 5.40 4.8-10.8 K/uL Red Blood Count 3.47 4.2-5.4 M/uL Hemoglobin 9.8 12.0-16.0 g/dL Hematocrit 30.0 37-47 % Mean Corpuscular Volume 86.5 80-100 fL Mean Corpuscular Hemoglobin 28.2 25-34 pg Mean Corpuscular Hemoglobin Concent 32.7 32-36 g/dl RDW Standard Deviation 48.3 36.4-46.3 fL RDW Coefficient of Variation 15.4 11.5-14.5 % Platelet Count 359 130-400 K/uL Mean Platelet Volume 8.6 7.4-10.4 fL Sodium Level 132 136-145 mmol/L Potassium Level 3.9 3.5-5.1 mmol/L Chloride Level 103 98-107 mmol/L Carbon Dioxide Level 24 21-32 mmol/L Anion Gap 5.0 3-11 mmol/L Blood Urea Nitrogen 8 7-18 mg/dl Creatinine 0.49 0.60-1.20 mg/dl Est Creatinine Clear Calc Drug Dose 104.9 ml/min Estimated GFR () 122.7 Estimated GFR (Non- 105.9 BUN/Creatinine Ratio 15.7 10-20 Random Glucose 103 70-99 mg/dl Calcium Level 7.9 8.5-10.1 mg/dl Magnesium Level 2.1 1.8-2.4 mg/dl
[2017-11-12 15:10] VITALS: BP 129/71; PULSE 87; TEMP 36.8; O2SAT 99
--- NOTE | 2017-11-12 15:10 | Discharge Instructions ---
Discharge Instructions Date of Service Nov 12, 2017. Admission Reason for Admission: Anemia Discharge Discharge Diagnosis / Problem: NSAID Induced Gastric ulcer/Gastritis-no active bleeding Discharge Goals Goal(s): Prevent Disease Progression Activity Recommendations Activity Limitations: resume your previous activity . Instructions / Follow-Up Instructions / Follow-Up dr Brady on 11/15/17 at 9:15 AM Current Hospital Diet Patient's current hospital diet: Regular Diet Discharge Diet Recommended Diet: Regular Diet Procedures Procedures Performed: EGD Pending Studies Studies pending at discharge: no Medical Emergencies . Who to Call and When: Medical Emergencies: If at any time you feel your situation is an emergency, please call 911 immediately. . Non-Emergent Contact Non-Emergency issues call your: Primary Care Provider . Past History Medical & Surgical History: (1) GI bleed (2) Severe anemia (3) Depression with anxiety (4) Moderate mental retardation (5) Seizure disorder (6) Hip fracture, right (7) Hx of right BKA (8) H/O tubal ligation (9) Hx of tonsillectomy . "Provider Documentation" section prepared by Jerrod Martin. .
[2017-11-12 15:27] VITALS: BP 129/71; PULSE 87; TEMP 36.8; O2SAT 99
--- NOTE | 2017-11-13 19:56 | Discharge Summary ---
Discharge Summary Date of Service Nov 13, 2017. Discharge Summary Admission Date: Nov 08, 2017 at 12:11 Discharge Date: Nov 12, 2017 Discharge Disposition: Home Principal Diagnosis: NSAID Induced Gastric ulcer/Gastritis-no active bleeding Secondary Diagnoses/Problems: Please see H&P and Hospital Progress note Procedures: EGD Consultations: GI and Slot Floor Person Medication Reconciliation Continued Medications: Acetaminophen (Tylenol) 500 Mg Tab 1 TAB PO BID, TAB Benztropine Mesylate (Cogentin) 1 Mg Tab 1 MG PO TID, TAB Carbamazepine (Tegretol) 200 Mg Tab 400 MG PO TID, 0 Refills Denosumab (Prolia) Unknown Strength Izzy Unknown Dose SQ UD Ferrous Sulfate (Iron) 325 Mg Tab 2 TABS PO TID Haloperidol (Haldol) 10 Mg Tab 10 MG PO HS, TAB Haloperidol (Haloperidol) 5 Mg Tab 1 TAB PO BID Lamotrigine (Lamictal) 200 Mg Tab 400 MG PO HS, TAB Lorazepam (Ativan) 0.5 Mg Tab 0.5 MG PO DAILY, TAB Lorazepam (Lorazepam) 0.5 Mg Tab 2 TAB PO HS for 30 Days, TAB Multivitamin (Multivitamin) Tab 1 TAB PO DAILY, TAB Pantoprazole (Protonix) 40 Mg Tab 40 MG PO BID, #30 TAB Phenobarbital (Phenobarbital) 30 Mg Tab 64.8 MG PO TID, 0 Refills 2 X 32.4 MG TID Discontinued Medications: Aspirin (Aspirin) 325 Mg Ectab 325 MG PO DAILY, #60 Naproxen (Aleve) 220 Mg Tab 220 MG PO BID, TAB Admission Information HPI (per Admitting provider): 62-year-old female who presents the ED by referral of her PCP for evaluation of anemia. She has chronic anemia with baseline hemoglobins around 7-8. History is limited from the patient due to her underlying mental status. When asked questions, she mostly repeats them back. She presented to her PCPs office today with complaints of increasing fatigue and weakness. I spoke to her son on the phone who provides the history for me. He reports that she has chronic fatigue and weakness however has been worse over the past couple weeks. Patient is on iron supplement and stools are chronically dark. No changes in stools or bright red bleeding per rectum. No reports of chest pain or shortness of breath. No lightheadedness, dizziness, or syncopal events. No other recent illnesses, fever, or chills. Son reports she has been having some urinary incontinence. Patient went to her PCPs office today she was found to have a hemoglobin of 4.1. She was referred to the ER for further evaluation. In the ED patient's hemoglobin is 3.9. Systolic blood pressures have been running in the 90s to low 100s. Heart rates have been in the 110's. In the ED , patient was given IVF and started on Protonix drip. She was also typed and crossed for blood. 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 Status: Chronic (5) Moderate mental retardation Status: Chronic (6) Seizure disorder Status: Chronic Surgical Problems: (1) H/O tubal ligation Status: Chronic (2) Hx of tonsillectomy Status: Chronic Family History FH: colon cancer MOTHER FH: prostate cancer FATHER Social History Smoking Status: Never Smoker Alcohol Use: none Marital Status: Housing status: lives with family Occupational Status: other Immunizations History of Influenza Vaccine: Yes Influenza Vaccine Date: May 18, 2017 History of Tetanus Vaccine?: Yes Tetanus Immunization Date: May 18, 2017 Allergies Coded Allergies: No Known Allergies (Verified , 11/08/17) Home Medications Scheduled Acetaminophen (Tylenol), 1 TAB PO BID Aspirin (Aspirin), 325 MG PO DAILY Benztropine Mesylate (Cogentin), 1 MG PO TID Carbamazepine (Tegretol), 400 MG PO TID Denosumab (Prolia), Unknown Dose SQ UD Ferrous Sulfate (Iron), 2 TABS PO TID Haloperidol (Haldol), 10 MG PO HS Haloperidol (Haloperidol), 1 TAB PO BID Lamotrigine (Lamictal), 400 MG PO HS Lorazepam (Ativan), 0.5 MG PO DAILY Lorazepam (Lorazepam), 2 TAB PO HS Multivitamin (Multivitamin), 1 TAB PO DAILY Naproxen (Aleve), 220 MG PO BID Pantoprazole (Protonix), 40 MG PO DAILY Phenobarbital (Phenobarbital), 64.8 MG PO TID Review of Systems ROS limited due to patient's mental status. Pertinent positives and negatives as noted in HPI. Physical Exam Vital Signs Date Time Temp Pulse Resp B/P (MAP) Pulse Ox O2 Delivery O2 Flow Rate FiO2 11/08/17 12:42 111/58 11/08/17 12:30 96/55 11/08/17 12:19 109 18 99 11/08/17 11:49 110 16 100 11/08/17 11:30 107 11/08/17 11:27 98 Room Air 11/08/17 11:15 102/61 11/08/17 10:57 37.0 80 20 79/48 95 Room Air General Appearance: WD/WN, no apparent distress Head: normocephalic, atraumatic Eyes: normal inspection, EOMI, sclerae normal ENT: hearing grossly normal, + pertinent finding (Mucous membranes moist) Neck: supple, no JVD, trachea midline Respiratory/Chest: lungs clear, normal breath sounds, no respiratory distress Cardiovascular: no edema, normal peripheral pulses, + tachycardia (Regular rhythm) Abdomen/GI: normal bowel sounds, non tender, soft, no organomegaly Extremities/Musculoskelatal: + pertinent finding (S/P right BKA) Neurologic/Psych: no motor/sensory deficits, alert, + pertinent finding ( History of moderate mental retardation, poor insight, frequently repeats questions back) Skin: warm/dry, + pallor Diagnostics Laboratory Results Results Past 24 Hours Test 11/08/17 11:10 11/08/17 12:12 11/08/17 12:49 Range/Units White Blood Count 6.31 4.8-10.8 K/uL Red Blood Count 1.54 4.2-5.4 M/uL Hemoglobin 3.9 12.0-16.0 g/dL Hematocrit 13.2 37-47 % Mean Corpuscular Volume 85.7 80-100 fL Mean Corpuscular Hemoglobin 25.3 25-34 pg Mean Corpuscular Hemoglobin Concent 29.5 32-36 g/dl Platelet Count 491 130-400 K/uL Neutrophils (%) (Auto) 73.9 % Lymphocytes (%) (Auto) 10.9 % Monocytes (%) (Auto) 12.5 % Eosinophils (%) (Auto) 0.3 % Basophils (%) (Auto) 1.3 % Neutrophils # (Auto) 4.66 1.4-6.5 K/uL Lymphocytes # (Auto) 0.69 1.2-3.4 K/uL Monocytes # (Auto) 0.79 0.11-0.59 K/uL Eosinophils # (Auto) 0.02 0-0.5 K/uL Basophils # (Auto) 0.08 0-0.2 K/uL Immature Granulocyte % (Auto) 1.1 % Immature Granulocyte # (Auto) 0.07 0.00-0.02 K/uL Hypochromasia PRESENT Anisocytosis PRESENT Stomatocytes 1+ Sodium Level 135 136-145 mmol/L Potassium Level 4.0 3.5-5.1 mmol/L Chloride Level 102 98-107 mmol/L Carbon Dioxide Level 24 21-32 mmol/L Anion Gap 9.0 3-11 mmol/L Blood Urea Nitrogen 12 7-18 mg/dl Creatinine 0.55 0.60-1.20 mg/dl Est Creatinine Clear Calc Drug Dose 97.0 ml/min Estimated GFR () 118.2 Estimated GFR (Non- 101.9 BUN/Creatinine Ratio 21.8 10-20 Random Glucose 106 70-99 mg/dl Calcium Level 8.2 8.5-10.1 mg/dl Total Bilirubin 0.2 0.2-1 mg/dl Aspartate Amino Transf (AST/SGOT) 13 15-37 U/L Alanine Aminotransferase (ALT/SGPT) 22 12-78 U/L Alkaline Phosphatase 45 45-117 U/L Total Protein 6.0 6.4-8.2 gm/dl Albumin 3.1 3.4-5.0 gm/dl Globulin 2.9 2.5-4.0 gm/dl Albumin/Globulin Ratio 1.1 0.9-2 Thyroid Stimulating Hormone (TSH) 1.370 0.300-4.500 uIu/ml Impression Assessment and Plan PROFOUND ANEMIA LIKELY UPPER GI BLEEDING -admit to ICU -Patient referred to ED by PCP where she was evaluated for weakness and fatigue and found to have a hemoglobin of 4.1; in the ED, hemoglobin found to be 3.9, systolic blood pressures running in the 90s to low 100s and heart rates in the 110's -Patient had EGD in 2011 that showed gastritis, nonobstructing ulcer with clean base-findings were felt to be due to chronic NSAID use and patient was advised for an 8 week follow-up endoscopy however did not have a completed -Noted that patient takes a full dose aspirin daily and Aleve twice a day -Likely NSAID induced gastritis -History of chronic anemia, baseline hemoglobin runs between 7-8 -Stool is heme positive in ED -Started on Protonix drip in the ED, will continue -IV fluids -N.p.o. except medications -Case discussed with Jennie SNYDER SEIZURE DISORDER, HISTORY OF PSYCHOSIS AND HALLUCINATIONS -Continue benztropine, carbamazepine, haloperidol, lamotrigine, Lorazepam, and phenobarbital DVT PROPHYLAXIS -SCDs due to profound anemia and GI bleeding DISPO -In my clinical judgment this beneficiary meets acute admission criteria, established by [facility], that includes being hospitalized through two midnights. ADDENDUM: I have seen and examined the patient and agree with the assessment and plan above. She has only been given 1L IVF in the ER, but remains hypotensive and will be monitored in the ICU for initial resuscitation. She has taken long-term NSAIDs both ASA 325mg for uncertain reason and Naproxen at least twice daily terminal supervisor for chronic pain in her legs. She is s/p R BKA for chronic osteomyelitis. GI plans for EGD once adequately resuscitated with blood products. Appreciate the ICU team's management of this patient. DO Josesito Resuscitation Status VTE Prophylaxis Will order VTE Prophylaxis: Yes <Electronically signed by Margret SNYDER> <Electronically signed by Leonor Bellamy DO> Signed: 11/08/17 1345 Signed: 11/08/17 1402 Physical Exam (per Admitting): General Appearance: WD/WN, no apparent distress Head: normocephalic, atraumatic Eyes: normal inspection, EOMI, sclerae normal ENT: hearing grossly normal, + pertinent finding (Mucous membranes moist) Neck: supple, no JVD, trachea midline Respiratory/Chest: lungs clear, normal breath sounds, no respiratory distress Cardiovascular: no edema, normal peripheral pulses, + tachycardia (Regular rhythm) Abdomen/GI: normal bowel sounds, non tender, soft, no organomegaly Extremities/Musculoskelatal: + pertinent finding (S/P right BKA) Neurologic/Psych: no motor/sensory deficits, alert, + pertinent finding ( History of moderate mental retardation, poor insight, frequently repeats questions back) Skin: warm/dry, + pallor Hospital Course NSAID Induced Gastric ulcer/Gastritis-no active bleeding PROFOUND ANEMIA LIKELY UPPER GI BLEEDING -Patient referred to ED by PCP where she was evaluated for weakness and fatigue and found to have a hemoglobin of 4.1; in the ED, hemoglobin found to be 3.9, systolic blood pressures running in the 90s to low 100s and heart rates in the 110's -Patient had EGD in 2011 that showed gastritis, nonobstructing ulcer with clean base-findings were felt to be due to chronic NSAID use and patient was advised for an 8 week follow-up endoscopy however did not have a completed -Noted that patient takes a full dose aspirin daily and Aleve twice a day -History of chronic anemia, baseline hemoglobin runs between 7-8 -Stool is heme positive in ED -Started on Protonix drip in the ED, will continue -Appreciate GI input -EGD-Gastritis with Gastric ulcer-no active bleeding -Hb remains >9 Hyponatremia and Hypokalemia Will give NS with K supplement Monitor -remains low Will administer more NS and monitor level; tomorrow Slightly better today Will discharge home this afternoon SEIZURE DISORDER, HISTORY OF PSYCHOSIS AND HALLUCINATIONS -Continue benztropine, carbamazepine, haloperidol, lamotrigine, Lorazepam, and phenobarbital No acute episode DVT PROPHYLAXIS -SCDs due to profound anemia and GI bleeding Code Status:Full Code Discharge this afternoon Total time spent on discharge = This includes examination of the patient, discharge planning, medication reconciliation, and communication with other providers. Discharge Instructions Date of Service Nov 12, 2017. Admission Reason for Admission: Anemia Discharge Discharge Diagnosis / Problem: NSAID Induced Gastric ulcer/Gastritis-no active bleeding Discharge Goals Goal(s): Prevent Disease Progression Activity Recommendations Activity Limitations: resume your previous activity . Instructions / Follow-Up Instructions / Follow-Up dr Brady on 11/15/17 at 9:15 AM Current Hospital Diet Patient's current hospital diet: Regular Diet Discharge Diet Recommended Diet: Regular Diet Procedures Procedures Performed: EGD Pending Studies Studies pending at discharge: no Medical Emergencies . Who to Call and When: Medical Emergencies: If at any time you feel your situation is an emergency, please call 911 immediately. . Non-Emergent Contact Non-Emergency issues call your: Primary Care Provider . Past History Medical & Surgical History: (1) GI bleed (2) Severe anemia (3) Depression with anxiety (4) Moderate mental retardation (5) Seizure disorder (6) Hip fracture, right (7) Hx of right BKA (8) H/O tubal ligation (9) Hx of tonsillectomy . "Provider Documentation" section prepared by Jerrod Martin. . <Electronically signed by Jerrod Martin M.D.> Signed: 11/12/17 3845 Additional Copies To Anibal Rohce M.D.
== END 2017-11-12 17:00 | disposition home or self-care (01) | DRG 384 ==
LOC: C.EDB 10:51 → C.MSICU 12:11 → EDBEDREQSVC 12:32 → EDBEDREQ 12:37 → ENRESERV 12:40 → EDBEDREQ 11-09 17:12 → ENRESERV 11-09 17:13 → C.2T 11-09 17:42 → ENRESERV 11-11 11:30 → C.MSW 11-11 12:37
PROVIDERS: ADMIT Hospitalist; ATTEND Internal Medicine
PROC: 0DB68ZX Excision of Stomach, Via Natural or Artificial Opening Endoscopic, Diagnostic (ICD-10-PCS; principal; 2017-11-09 10:17)
DX: K25.9 Gastric ulcer, unspecified as acute or chronic, without hemorrhage or perforation (principal); E87.1 Hypo-osmolality and hyponatremia; D64.9 Anemia, unspecified; Z80.0 Family history of malignant neoplasm of digestive organs; Z79.82 Long term (current) use of aspirin; G40.909 Epilepsy, unspecified, not intractable, without status epilepticus; K29.70 Gastritis, unspecified, without bleeding; E87.6 Hypokalemia